=== PATIENT | female | born 1970 | race Caucasian/White ===

== ENCOUNTER → 2023-03-04 | Outpatient (CLI) | payer OTHER ==
[2023-03-04 12:51] LABS: Appearance,Urine Cloudy (Clear); Bilirubin,Urine Negative (Negative); Blood,Urine Negative (Negative); Color,Urine Yellow (Yellow); Ketones,Urine Negative (Negative); Nitrite,Urine Negative (Negative); PH, Urine 6.5 (5.0-8.0); Specific Gravity,Urine 1.018 (1.001-1.030); Urobilinogen,Urine 0.2 (0.2,1.0)
[2023-03-04 13:43] LABS: Bacteria,Urine 1+ /HPF (None Seen); Calcium Oxalate Crystals,Urine Present /LPF (None Seen)
[2023-03-04 14:17] LABS: Basophils # (A) 0.06 X 10*3/uL (0.00-0.10); Basophils % (A) 1.4 %; Eosinophils # (A) 0.42 X 10*3/uL (0.04-0.35); Eosinophils % (A) 9.8 %; HCT 46.9 % (37.2-46.3); HGB 14.4 g/dL (12.0-15.0); Immature Grans, Automated 0.5 %; Lymphocytes # (A) 1.47 X 10*3/uL (0.90-5.00); Lymphocytes % (A) 34.3 %; MCH 26.3 pg (27.0-32.0); MCHC 30.7 g/dL (32.0-37.0); MCV 85.6 fL (80.0-97.0); Monocytes # (A) 0.29 X 10*3/uL (0.20-1.00); Monocytes % (A) 6.8 %; NRBC Per 100 WBC 0 /100 WBCS (0.0-0.0); Neutrophils # (A) 2.02 X 10*3/uL (1.80-7.70); Neutrophils % (A) 47.2 %; Platelet Count 209 X 10*3/uL (140-440); RBC 5.48 X 10*6/uL (4.10-5.20); RDW 14.9 % (11.5-14.5); WBC 4.28 X 10*3/uL (4.50-10.00)
[2023-03-04 14:46] LABS: African American GFR (CKD) 63.1 (60.0-200.0); Anion Gap 10.9 mmol/L (10.00-18.00); BUN/Creat Ratio 14.3 Ratio (12.00-20.00); Blood Urea Nitrogen 16.3 mg/dL (9.0-27.0); Carbon Dioxide 24.3 mmol/L (20.0-27.5); Non-African American GFR(CKD) 54.5 (60.0-200.0); Potassium 4.6 mmol/L (3.5-5.5)
== END | disposition home or self-care (01) ==
LOC: LABPAT 07:14
PROVIDERS: ATTEND Urology
DX: Z01.812 Encounter for preprocedural laboratory examination (principal); N20.1 Calculus of ureter; R31.29 Other microscopic hematuria
CPT/HCPCS: 80048; 81001; 85025; 87086

== ENCOUNTER 2023-03-12 08:51 | Day surgery (SDC) | payer OTHER ==
--- NOTE | 2023-03-11 19:28 | P.GSHP ---
History of Present Illness H&P Date: 03/11/23 52 yo female came from [place] with bilateral ureteral stones. On the right there are two large stones in the mid ureter with chronic hydro and significant damage to the kidney. there is also a possible tiny stone in the left distal ureter. She comes for right ureteroscopy, laser lithotripsy, stent placement. I will also do a left retrograde pyelogram and possible ureteroscopy if the small distal left ureteral stone is still present. the risks and complications have been discussed. - Constitutional Constitutional: Denies chills, Denies fever - EENT Eyes: denies blurred vision, denies pain Ears, nose, mouth and throat: Denies headache, Denies sore throat - Cardiovascular Cardiovascular: Denies chest pain, Denies shortness of breath - Respiratory Respiratory: Denies cough, Denies 7 - Gastrointestinal Gastrointestinal: Denies abdominal pain, Denies diarrhea, Denies nausea, Denies vomiting - Genitourinary (Female) Genitourinary: Denies dysuria, Denies hematuria - Genitourinary (Male) Genitourinary: Denies dysuria, Denies hematuria - Musculoskeletal Musculoskeletal: Denies myalgias - Integumentary Integumentary: Denies pruritus, Denies rash - Neurological Neurological: Denies numbness, Denies weakness - Psychiatric Psychiatric: Denies anxiety, Denies depression - Endocrine Endocrine: Denies fatigue, Denies weight change Past Medical History Past Medical History: Renal Disease Additional Past Medical History / Comment(s): KIDNEY STONES, ENVIRONMENTAL ALLERGIES. History of Any Multi-Drug Resistant Organisms: None Reported Past Surgical History: Section, Tubal Ligation Additional Past Surgical History / Comment(s): KIDNEY STONES Additional Past Anesthesia/Blood Transfusion Reaction / Comment(s): Pt has never received blood. Smoking Status: Never smoker - Past Family History Mother Additional Family Medical History / Comment(s): BACK PROBLEMS Father Family Medical History: Cancer Additional Family Medical History / Comment(s): FROM COLON CANCER, KIDNEY STONES. Medications and Allergies Home Medications Medication Instructions Recorded Confirmed Type Hydrocodone/Acetaminophen [[place] 1 each PO Q6HR PRN #20 tab 11/14/14 03/10/23 Rx 5-325] Ketorolac [Toradol] 10 mg PO Q6HR #20 tab 01/26/15 05/22/23 Rx Tamsulosin HCl [Flomax] 0.4 mg PO QAM 03/10/23 03/10/23 History Allergies Allergy/AdvReac Type Severity Reaction Status Date / Time No Known Allergies Allergy Verified 03/10/23 10:26 Surgical - Exam - General well developed, well nourished, no distress - Eyes normal ocular movement, no icteric - ENT no hearing loss, no congestion - Neck no masses, trachea midline - Respiratory normal respiratory effort, clear to auscultation - Abdomen Abdomen: soft, non tender, no guarding, no rigid, no rebound - Integumentary no rash, no abnormal pigmentation - Neurologic no disoriented, no combative - Psychiatric oriented to time, oriented to person, oriented to place, speech is normal, me yakelin intact Results - Imaging CT scan - abdomen: report reviewed, image reviewed CT scan - pelvis: report reviewed, image reviewed Assessment and Plan Assessment: Impression: right uretera stones with chronic hydro and secondary damage to the kidney. probable left ureteral stone Plan: right ureteroscopy with laser lithotripsy, stent placement. Left retrograde pyelogram and possible ureteroscopy with laser lithotrispy
[~2023-03-12 08:51] MED LIST: ceFAZolin 3 GM in SODIUM CHLORIDE 0.9% 100 ML IVPB PRN
--- NOTE | 2023-03-12 09:13 | XR ---
EXAMINATION TYPE: XR KUB DATE OF EXAM: 03/12/2023 9:03 AM INDICATION: Patient age:Female; 52 years old; Reason for study: N20.1 RT URETAL STONE; COMPARISON: 11/14/2014 TECHNIQUE: One radiographic view of the abdomen was obtained. FINDINGS: The bowel gas pattern is nonspecific without dilated loops of small or large bowel. There i s no evidence for organomegaly or pneumoperitoneum. The osseous structures are intact opacification projecting over the kidney measuring 11 mm. There is a right calculus near the distal right ureter me asuring 7 mm. Fecal material and gas are demonstrated throughout the colon and rectum. IMPRESSION: 1. Left renal stone projecting over the inferior renal pole measuring 11 mm. 2. Right pelvic calculus near the expected location of the distal right ureter measuring 7 mm.
[2023-03-12 09:19] VITALS: RESP 16
[2023-03-12] MEDS ORDERED: ONDANSETRON 4 MG/2 ML VIAL ONE (09:28)
[2023-03-12] MEDS ORDERED: LACTATED RINGERS 1,000 ML IV ONE ×2 (09:32→10:29)
[2023-03-12] MEDS ORDERED: DEXAMETHASONE SOD PHOSPHATE 4 MG/ML 1 ML VIAL IVP ONE (09:33)
[2023-03-12] MEDS ORDERED: ONDANSETRON 4 MG/2 ML VIAL IVP ONE (09:33)
[2023-03-12] MEDS ORDERED: PROPOFOL 10 MG/ML 20 ML VIAL IV ONE (09:39)
[2023-03-12] MEDS ORDERED: ePHEDrine 50 MG/ML 1 ML VIAL ONE (09:39)
[2023-03-12] MEDS ORDERED: LIDOCAINE 2% INJ 20 MG/ML (2 ML VIAL) ONE (09:39)
[2023-03-12] MEDS ORDERED: SUCCINYLCHOLINE CHLORIDE 200 MG/10 ML VIAL IV ONE (09:39)
[2023-03-12] MEDS ORDERED: WATER FOR INJECTION, STERILE 10 ML VIAL IV ONE (09:39)
[2023-03-12] MEDS ORDERED: fentaNYL (PF) 50 MCG/ML 2 ML AMP ONE (09:39)
[2023-03-12] MEDS ORDERED: GLYCOPYRROLATE 0.2 MG/ML 2 ML VIAL ONE (09:39)
[2023-03-12] MEDS ORDERED: MIDAZOLAM 2 MG/2 ML VIAL ONE (09:39)
[2023-03-12] MEDS ORDERED: IOPAMIDOL-370 100ML BTL MISCELLANE ONE (10:06)
[2023-03-12 11:43] VITALS: TEMP 96.8
--- NOTE | 2023-03-12 11:44 | P.OP ---
Date of Procedure: 03/12/23 Preoperative Diagnosis: Right ureteral calculi, large, with significant chronic hydronephrosis, possible left ureteral calculus, left renal calculus Postoperative Diagnosis: Same, no evidence of ureteral calculus left Procedure(s) Performed: Cystoscopy, bilateral retrograde pyelograms, right ureteroscopy with laser lithotripsy, placement of 6 x 24 stent Anesthesia: BRANDI Surgeon: Michael Vilchis Estimated Blood Loss (ml): 10 Pathology: other (Stone) Condition: stable Disposition: PACU Indications for Procedure: The patient is 52. She presented to the office with large distal right ureteral stones greater than 1 cm with obvious chronic right hydroureteronephrosis with damage to her right kidney. She also had a small left ureteral calculus and a small left renal calculus. Due to her obesity it is difficult to say for certain whether the left ureteral stone was seen on KUB today. The right ureteral stone is seen faintly. She comes for cystoscopy bilateral retrograde pyelograms probable right ureteroscopy laser lithotripsy and stent placement possible left ureteroscopy. Description of Procedure: The patient is brought to the operating suite. She is given a general anesthetic. She's placed lithotomy position with sterile prep and drape. She has a notable cystocele with a posterior place floor the bladder. Cystoscopy identifies a normal urethra. The bladder ocampo unremarkable. With a cone-tip catheters a right retrograde pyelogram was performed identifying stones in the distal and midureter large with almost complete obstruction. I then do a left retrograde pyelogram with an 8 cone-tip catheter and do not identify any eviden ce of obstruction or filling defect in the ureter. I then attempted to pass an 035 wire up the right ureter but meet some obstruction of the stone. I leave the wire there. I then advanced a rigid u reteroscope up to the right stone. With a 3 and 65 laser probe I then began to slowly fracture the stone with 8 W of energy. I tediously break up almost 2 cm of stone. About longterm through the procedure and finally able to advance the wire up into the kidney. I continue to break the stone until I'm able to pass the scope proximal to the stone. The stone was embedded into the ureteral wall and there are significant edema around the stone. After breaking everything I can see into smaller fragments I then pass a stone basket and scrape out fragments out of the right ureter.. I thus reinspected the ureter and there is no significant fragments remaining. There is a lot of edema or more the stone had lodged a. I then removed the ureteroscope. I drained the bladder and stone fragments. Over the wires passed a 6 x 24 double-J catheter that coils in the renal pelvis and the bladder there is drained. The patient is awake and returned recovery room good condition Impression successful right ureteroscopy laser lithotripsy and relief of significant obstruction on the right. No Evidence of stone in the ureter on the left. Plan I will discharged home the patient upon recovery and see her in the office in one week. I'll set her up for a repeat ureteroscopy on the right to assess the edema and scarring created by the stone. I'll see if there is any segments remaining. I then we'll do a left ureteroscopy laser lithotripsy to the lower pole stone.
[2023-03-12] MEDS ORDERED: hydrALAZINE HCL 20 MG/ML 1 ML VIAL ONE (12:49)
[2023-03-12] MEDS ORDERED: hydrALAZINE HCL 20 MG/ML 1 ML VIAL IVP ONE (12:52)
[2023-03-12 13:11] VITALS: BP 147/96; PULSE 82
--- NOTE | 2023-03-12 14:47 | FL ---
Intraoperative/procedural fluoroscopic services were provided. Total fluoroscopy time is 26 seconds w ith a total of 3 submitted images to PACS. Please see the operative/procedural note for further detlina ls. DAP: 7.6050
== END 2023-03-12 13:22 | disposition home or self-care (01) ==
LOC: OR 08:51
PROVIDERS: ATTEND Urology
DX: N13.2 Hydronephrosis with renal and ureteral calculous obstruction (principal); Z98.891 History of uterine scar from previous surgery; Z98.51 Tubal ligation status; Z98.890 Other specified postprocedural states; Z80.0 Family history of malignant neoplasm of digestive organs; Z79.899 Other long term (current) drug therapy
CPT/HCPCS: 82365; 74018; 52356; C1758; C1769; J2250; J0330; J0360; J1100; J0690; J2405; J3010; J2704; Q9967; J2001

== ENCOUNTER → 2023-05-07 | Outpatient (CLI) | payer OTHER ==
--- NOTE | 2023-05-07 08:42 | XR ---
EXAMINATION TYPE: XR KUB DATE OF EXAM: 05/07/2023 COMPARISON: 03/12/2023 HISTORY: Renal calculus TECHNIQUE: AP abdomen FINDINGS: There is a 0.6 cm calcification inferior pole right kidney. A 0.6 cm calcifications at the inferior pole left kidney. This is smaller than the comparison. The calcification reported at the mid right pelvis not clearly evident on the current exam. Normal colonic bowel gas is present. Osseous structures are unremarkable. Organomegaly is not evident . Psoas margins are normal. IMPRESSION: 1. Bilateral 0.6 cm inferior pole renal stones. Right renal stone is smaller than comparison. 2. Nonvisualization of the prior pelvic stone.
== END | disposition home or self-care (01) ==
LOC: RADXRMAIN 07:27
PROVIDERS: ATTEND Urology
DX: N20.2 Calculus of kidney with calculus of ureter (principal)
CPT/HCPCS: 74018

== ENCOUNTER 2023-08-16 02:05 | Observation (INO) | payer OTHER ==
[2023-08-16] MEDS ORDERED: HYDROmorphone 1 MG/ML 1 ML SYRINGE IVP STA ×2 (02:39→04:04)
[2023-08-16] MEDS ORDERED: SODIUM CHLORIDE 0.9% 2,000 ML IV STA (02:39)
--- NOTE | 2023-08-16 03:12 | ED ---
Abdominal Pain HPI - General Source: patient Mode of arrival: ambulatory Limitations: no limitations <Rob Diez - Last Filed: 08/16/23 03:20> <Santino Geiger - Last Filed: 08/16/23 06:25> - General Chief Complaint: Abdominal Pain Stated Complaint: Kidney Stones, Nausea, Vomiting Time Seen by Provider: 08/16/23 02:21 - History of Present Illness Initial Comments: 53-year-old female presents to the ED with a chief complaint of flank pain. Patient has extensive history of kidney stones. Patient recently seen by Dr. Vilchis on 03/12/23 and had lithotripsy of right obstructing stone measuring 1cm. At this time no evidence of obstructing stone on the left. No stents were placed following this. Today, patient reports that she started to experience inability to urinate at approximately 8:30. Since then, also notes a gradual progression of bilateral flank pain. Reports that she tried taking Toradol and [place] at home which did not reveal a her pain probably presentation to the ED for further evaluation. Associated nausea, no vomiting. No chest pain or shortness of breath. No other complaints. (Rob Diez) - Related Data Home Medications Medication Instructions Recorded Confirmed Tamsulosin HCl [Flomax] 0.4 mg PO QAM 03/10/23 03/10/23 Previous Rx's Medication Instructions Recorded Hydrocodone/Acetaminophen [[place] 1 each PO Q6HR PRN #20 tab 11/14/14 5-325] Ketorolac [Toradol] 10 mg PO Q6HR #20 tab 11/14/14 Allergies Allergy/AdvReac Type Severity Reaction Status Date / Time Sulfa (Sulfonamide Allergy Nausea & Verified 08/16/23 02:18 Antibiotics) Vomiting Review of Systems ROS Other: All systems not noted in ROS Statement are negative. <Rob Diez - Last Filed: 08/16/23 03:20> ROS Other: All systems not noted in ROS Statement are negative. <Santino Geiger - Last Filed: 08/16/23 06:25> ROS Statement: Those systems with pertinent positive or pertinent negative responses have been documented in the HPI. Past Medical History Additional Past Medical History / Comment(s): KIDNEY STONES History of Any Multi-Drug Resistant Organisms: None Reported Past Surgical History: Section Additional Past Surgical History / Comment(s): KIDNEY STONES Past Psychological History: No Psychological Hx Reported Smoking Status: Never smoker Past Alcohol Use History: None Reported Past Drug Use History: None Reported <CharyRob - Last Filed: 08/16/23 03:20> General Exam Limitations: no limitations General appearance: alert, in distress (Pacing the room, appears to be in pain unable to get comfortable) Neck exam: Present: normal inspection Respiratory exam: Present: normal lung sounds bilaterally Cardiovascular Exam: Present: regular rate, normal rhythm GI/Abdominal exam: Present: soft (Bilateral flank tenderness to percussion. Abdomen soft. Diffuse tenderness to palpation. ), normal bowel sounds Neurological exam: Present: alert, oriented X3 Skin exam: Present: warm, dry <Rob Diez - Last Filed: 08/16/23 03:20> Course Vital Signs 08/16/23 08/16/23 02:15 06:19 Temperature 98 F Pulse Rate 88 91 Respiratory 18 20 Rate Blood Pressure 120/86 O2 Sat by Pulse 98 94 L Oximetry Medical Decision Making <Rob Diez - Last Filed: 08/16/23 03:20> - Lab Data Result diagrams: 08/16/23 02:26 08/16/23 02:26 <Santino Geiger - Last Filed: 08/16/23 06:25> - Medical Decision Making Was pt. sent in by a medical professional or institution (Dr. PA, REGISTERED ASSOCIATE, urgent care, hospital, or assisted...) When possible be specific @ -No Did you speak to anyone other than the patient for history (EMS, parent, family, police, friend...)? What history was obtained from this source @ -No Did you review nursing and triage notes (agree or disagree)? Why? @ -I reviewed and agree with nursing and triage notes Were old charts reviewed (outside hosp., previous admission, EMS record, old EKG, old radiological studies, urgent care reports/EKG's, assisted records)? Report findings @ -Prior records reviewed. For further details please see HPI. Differential Diagnosis (chest pain, altered mental status, abdominal pain women, abdominal pain men, vaginal bleeding, weakness, fever, dyspnea, syncope, headache, dizziness, GI bleed, back pain, seizure, CVA, palpatations, mental health, musculoskeletal)? @ -Differential Abdominal Pain Women: Appendicitis, Cholecystitis, diverticulosis, ischemic bowel, pancreatitis, hepatitis, UTI, gastroenteritis, AAA, incarcerated hernia, bowel obstruction, constipation, inflammatory bowel, hepatitis, peptic ulcer disease, splenic infarction, perforated viscus, vulvitis, ovarian torsion, PID, kidney stone, placenta abruption, this is not meant to be an all-inclusive list EKG interpreted by me (3pts min.). @ -None X-rays interpreted by me (1pt min.). @ -None CT interpreted by me (1pt min.). @ -Pending U/S interpreted by me (1pt. min.). @ -None done What testing was considered but not performed or refused? (CT, X-rays, U/S, labs)? Why? @ -None What meds were considered but not given or refused? Why? @ -None Did you discuss the management of the patient with other professionals (professionals i.e. , PA, REGISTERED ASSOCIATE, lab, RT, psych nurse, elementary school social worker, chart snatcher, teacher, division officer weapons department, case fitter)? Give summary @ -No Was smoking cessation discussed for >3mins.? @ -No Was critical care preformed (if so, how long)? @ -No Were there social determinants of health that impacted care today? How? (Homelessness, low income, unemployed, alcoholism, drug addiction, transportation, low edu. Level, literacy, decrease access to med. care, assisted, rehab)? @ -No Was there de-escalation of care discussed even if they declined (Discuss DNR or withdrawal of care, Hospice)? DNR status @ -No What co-morbidities impacted this encounter? (DM, HTN, Smoking, COPD, CAD, Cancer, CVA, ARF, Chemo, Hep., AIDS, mental health diagnosis, sleep apnea, morbid obesity)? @ -None Was patient admitted / discharged? Hospital course, mention meds given and route, prescriptions, significant lab abnormalities, going to OR and other pertinent info. @ -Pending 83-year-old female with history of kidney stones presented to the ED with complaints of dysuria, urgency, bilateral flank pain, and nausea. At this time, laboratory studies and CT abdomen and pelvis without contrast are pending. Case signed out to Dr. Geiger for further disposition. (Rob Diez) Patient has multiple obstructing calculi in the right ureter with hydronephrosis, hydroureter, there is concern for concurrent urine or tract infection. Patient is started on antibiotics awaiting culture results. She'll be admitted to Dr. Florez for evaluation treatment. (Santino Geiger) - Lab Data Lab Results 08/16/23 08/16/23 08/16/23 Range/Units 02:26 02:26 02:26 WBC 9.4 (3.8-10.6) k/uL RBC 5.65 H (3.80-5.40) m/uL Hgb 15.4 (11.4-16.0) gm/dL Hct 49.0 H (34.0-46.0) % MCV 86.7 (80.0-100.0) fL MCH 27.2 (25.0-35.0) pg MCHC 31.4 (31.0-37.0) g/dL RDW 15.7 H (11.5-15.5) % Plt Count 238 (150-450) k/uL MPV 7.8 Neutrophils % 79 % Lymphocytes % 13 % Monocytes % 3 % Eosinophils % 3 % Basophils % 0 % Neutrophils # 7.5 (1.3-7.7) k/uL Lymphocytes # 1.2 (1.0-4.8) k/uL Monocytes # 0.3 (0-1.0) k/uL Eosinophils # 0.3 (0-0.7) k/uL Basophils # 0.0 (0-0.2) k/uL Sodium 141 (137-145) mmol/L Potassium 4.3 (3.5-5.1) mmol/L Chloride 109 H (98-107) mmol/L Carbon Dioxide 23 (22-30) mmol/L Anion Gap 9 mmol/L BUN 15 (7-17) mg/dL Creatinine 1.20 H (0.52-1.04) mg/dL Est GFR (CKD-EPI)AfAm 59 (>60 ml/min/1.73 sqM) Est GFR (CKD-EPI)NonAf 51 (>60 ml/min/1.73 sqM) Glucose 109 H (74-99) mg/dL Calcium 11.2 H (8.4-10.2) mg/dL Total Bilirubin 0.5 (0.2-1.3) mg/dL AST 20 (14-36) U/L ALT 20 (4-34) U/L Alkaline Phosphatase 90 (38-126) U/L Total Protein 7.1 (6.3-8.2) g/dL Albumin 4.1 (3.5-5.0) g/dL Urine Color Yellow Urine Appearance Turbid H (Clear) Urine pH 7.0 (5.0-8.0) Ur Specific [place] 1.025 (1.001-1.035) Urine Protein 3+ (Negative) Urine Glucose (UA) Negative (Negative) Urine Ketones Negative (Negative) Urine Blood Large (Negative) Urine Nitrite Negative (Negative) Urine Bilirubin Negative (Negative) Urine Urobilinogen <2.0 (<2.0) mg/dL Ur Leukocyte Esterase Large (Negative) Urine RBC >182 H (0-5) /hpf Urine WBC >182 H (0-5) /hpf Urine WBC Clumps Many H (None) /hpf Ur Squamous Epith Cells 4 (0-4) /hpf Urine Bacteria Moderate H (None) /hpf Urine Mucus Many H (None) /hpf Disposition <Rob Diez - Last Filed: 08/16/23 03:20> Is patient prescribed a controlled substance at d/c from ED?: No Time of Disposition: 06:25 <Santino Geiger - Last Filed: 08/16/23 06:25> Clinical Impression: Ureteral calculus, UTI (urinary tract infection), Kidney stone Disposition: ADMITTED IP TO THIS HOSP Condition: Stable Referrals: Marco Antonio Wolf MD [Primary Care Provider] - 1-2 days
[2023-08-16 03:30] LABS: Basophils % (A) 0 %; Eosinophils # (A) 0.3 k/uL (0-0.7); Eosinophils % (A) 3 %; HGB 15.4 gm/dL (11.4-16.0); Lymphocytes # (A) 1.2 k/uL (1.0-4.8); Lymphocytes % (A) 13 %; MCH 27.2 pg (25.0-35.0); MCHC 31.4 g/dL (31.0-37.0); MCV 86.7 fL (80.0-100.0); Mean Platelet Volume 7.8; Monocytes # (A) 0.3 k/uL (0-1.0); Monocytes % (A) 3 %; Neutrophils # (A) 7.5 k/uL (1.3-7.7); Neutrophils % (A) 79 %; Platelet Count 238 k/uL (150-450); RBC 5.65 m/uL (3.80-5.40); RDW 15.7 % (11.5-15.5); WBC 9.4 k/uL (3.8-10.6)
[2023-08-16 03:36] LABS: Appearance,Urine Turbid (Clear); Bilirubin,Urine Negative (Negative); Blood,Urine Large (Negative); Color,Urine Yellow; Glucose,Urine (UA) Negative (Negative); Ketones,Urine Negative (Negative); Protein,Urine 3+ (Negative); Specific Gravity,Urine 1.025 (1.001-1.035); Urobilinogen,Urine <2.0 mg/dL (<2.0)
[2023-08-16 03:37] LABS: Leukocyte Esterase,Urine Large (Negative); Nitrite,Urine Negative (Negative)
[2023-08-16 03:47] LABS: Bacteria,Urine Moderate /hpf; Mucus,Urine Many /hpf; RBC,Urine >182 /hpf (0-5); Squamous Epithelial Cell,Urine 4 /hpf (0-4); WBC,Urine >182 /hpf (0-5)
[2023-08-16 04:01] LABS: ALT 20 U/L (4-34); AST 20 U/L (14-36); African American GFR (CKD) 59 (>60 ml/min/1.73 sqM); Albumin 4.1 g/dL (3.5-5.0); Alkaline Phosphatase 90 U/L (38-126); Anion Gap 9 mmol/L; Blood Urea Nitrogen 15 mg/dL (7-17); Calcium 11.2 mg/dL (8.4-10.2); Carbon Dioxide 23 mmol/L (22-30); Chloride 109 mmol/L (98-107); Glucose 109 mg/dL (74-99); Non-African American GFR(CKD) 51 (>60 ml/min/1.73 sqM); Sodium 141 mmol/L (137-145); Total Bilirubin 0.5 mg/dL (0.2-1.3); Total Protein 7.1 g/dL (6.3-8.2)
[2023-08-16] MEDS ORDERED: KETOROLAC 15 MG/ML 1 ML VIAL IVP STA (04:04)
[2023-08-16 04:49] LABS: Potassium 4.3 mmol/L (3.5-5.1)
--- NOTE | 2023-08-16 05:09 | CT ---
EXAM: CT Abdomen and Pelvis Without Intravenous Contrast CLINICAL HISTORY: r/o stone TECHNIQUE: Axial computed tomography images of the abdomen and pelvis without intravenous contrast. CTDI is 27.4 mGy and DLP is 1664 mGy-cm. This CT exam was performed using one or more of the following dose reduction techniques: automated exposure control, adjustment of the mA and/or kV according to patient size, and/or use of iterative reconstruction technique. COMPARISON: CT of the abdomen/pelvis dated 11/14/2014. FINDINGS: Lung bases: Patchy ground-glass and consolidative opacities are seen in the left lower lobe suggesting infectious versus inflammatory airspace disease. ABDOMEN: Liver: Unremarkable. Gallbladder and bile ducts: Unremarkable. No calcified stones. No ductal dilation. Pancreas: Unremarkable. No ductal dilation. Spleen: Splenomegaly, measuring up to 14.7 cm in greatest dimension, as seen on prior study and of unknown significance. Adrenals: Unremarkable. No mass. Kidneys and ureters: Three subcentimeter stones are seen in the right ureter, 2 of which are seen in the mid right ureter, measuring up to 7 mm, with a 3-4 mm stone seen at the right UVJ resulting in moderate/severe right-sided hydroureteronephrosis with associated perinephric and periureteral fat stranding. A few nonobstructing stones are seen in the right kidney, largest of which measures 6 mm in the lower pole. Nonobstructive left nephrolithiasis, measuring up to 9 mm in the lower pole. Stomach and bowel: Unremarkable. No obstruction. No mucosal thickening. PELVIS: Appendix: No findings to suggest acute appendicitis. Bladder: Underdistention and/or wall thickening of the urinary bladder, which may represent cystitis. No stones. Reproductive: Fibroid uterus again noted, unchanged. ABDOMEN and PELVIS: Intraperitoneal space: Unremarkable. No free air. No significant fluid collection. Bones/joints: No acute fracture. No dislocation. Soft tissues: Small/moderate fat-containing supraumbilical hernia. Vasculature: Unremarkable. No abdominal aortic aneurysm. Lymph nodes: Mildly prominent retroperitoneal lymph nodes, likely reactive. IMPRESSION: 1. Three subcentimeter stones are seen in the right ureter, 2 of which are seen in the mid right ureter, measuring up to 7 mm, with a 3-4 mm stone seen at the right UVJ resulting in moderate/severe right-sided hydroureteronephrosis with associated perinephric and periureteral fat stranding. Correlate clinically for superimposed infection. 2. Underdistention and/or wall thickening of the urinary bladder, which may represent cystitis. Correlate clinically. 3. Patchy ground-glass and consolidative opacities are seen in the left lower lobe suggesting infectious versus inflammatory airspace disease. 4. Splenomegaly, as seen on prior study and of unknown significance.
[2023-08-16] MEDS: SODIUM CHLORIDE 0.9% 1,000 ML IV SCH ×2 (05:25→19:17)
[2023-08-16] MEDS ORDERED: HYDROmorphone 0.5 MG/0.5 ML SYRINGE IVP PRN (06:23)
[2023-08-16] MEDS ORDERED: NALOXONE 0.4 MG/ML 1 ML VIAL IV PRN (06:23)
[2023-08-16] MEDS ORDERED: ONDANSETRON 4 MG/2 ML VIAL IVP PRN (06:23)
[2023-08-16] MEDS ORDERED: ACETAMINOPHEN TAB 325 MG TAB PO PRN (06:23)
[2023-08-16] MEDS: HYDROmorphone 1 MG/ML 1 ML SYRINGE IVP PRN ×2 (09:57→15:18)
--- NOTE | 2023-08-16 14:31 | P.GSHP ---
History of Present Illness H&P Date: 08/16/23 Chief Complaint: Right renal colic The patient is a 53-year-old white female with a history of recurrent urolithiasis secondary to hyperparathyroidism. Yesterday evening, she experienced acute onset of right flank pain associated with nausea and vomiting. She presented to the ER for evaluation. CT scan shows significant right hydronephrosis secondary to 3 right ureteral calculi. Urinalysis is suggestive of a UTI. - Constitutional Constitutional: Denies chills, Denies fever - Gastrointestinal Gastrointestinal: Reports nausea, Reports vomiting - Genitourinary (Female) Genitourinary: Reports dysuria, Reports flank pain, Reports hematuria, Reports k idney stones Past Medical History Additional Past Medical History / Comment(s): KIDNEY STONES History of Any Multi-Drug Resistant Organisms: None Reported Past Surgical History: Section Additional Past Surgical History / Comment(s): KIDNEY STONES Past Psychological History: No Psychological Hx Reported Smoking Status: Never smoker Past Alcohol Use History: None Reported Past Drug Use History: None Reported Medications and Allergies Home Medications Medication Instructions Recorded Confirmed Type No Known Home Medications 08/16/23 08/16/23 History Allergies Allergy/AdvReac Type Severity Reaction Status Date / Time nitrofurantoin Allergy nausea, Verified 08/16/23 11:38 [From Macrobid] vomiting, pounding headache, unable to move Sulfa (Sulfonamide Allergy Nausea & Verified 08/16/23 11:38 Antibiotics) Vomiting Surgical - Exam Vital Signs Temp Pulse Resp Pulse Ox 98 F 88 18 98 08/16/23 02:15 08/16/23 02:15 08/16/23 02:15 08/16/23 02:15 - General well developed, well nourished, moderate pain - Respiratory normal respiratory effort - Abdomen Soft, non-distended. Moderate right CVA tenderness. No left CVA tenderness. - Psychiatric oriented to time, oriented to person, oriented to place, speech is normal, memory intact Results - Labs 08/16/23 02:26 08/16/23 02:26 Abnormal Lab Results - Last 24 Hours (Table) 08/16/23 08/16/23 08/16/23 Range/Units 02:26 02:26 02:26 RBC 5.65 H (3.80-5.40) m/uL Hct 49.0 H (34.0-46.0) % RDW 15.7 H (11.5-15.5) % Chloride 109 H (98-107) mmol/L Creatinine 1.20 H (0.52-1.04) mg/dL Glucose 109 H (74-99) mg/dL Calcium 11.2 H (8.4-10.2) mg/dL Urine Appearance Turbid H (Clear) Urine RBC >182 H (0-5) /hpf Urine WBC >182 H (0-5) /hpf Urine WBC Clumps Many H (None) /hpf Urine Bacteria Moderate H (None) /hpf Urine Mucus Many H (None) /hpf Diabetes panel 08/16/23 Range/Units 02:26 Sodium 141 (137-145) mmol/L Potassium 4.3 (3.5-5.1) mmol/L Chloride 109 H (98-107) mmol/L Carbon Dioxide 23 (22-30) mmol/L BUN 15 (7-17) mg/dL Creatinine 1.20 H (0.52-1.04) mg/dL Glucose 109 H (74-99) mg/dL Calcium 11.2 H (8.4-10.2) mg/dL AST 20 (14-36) U/L ALT 20 (4-34) U/L Alkaline Phosphatase 90 (38-126) U/L Total Protein 7.1 (6.3-8.2) g/dL Albumin 4.1 (3.5-5.0) g/dL Calcium panel 08/16/23 Range/Units 02:26 Calcium 11.2 H (8.4-10.2) mg/dL Albumin 4.1 (3.5-5.0) g/dL Pituitary panel 08/16/23 Range/Units 02:26 Sodium 141 (137-145) mmol/L Potassium 4.3 (3.5-5.1) mmol/L Chloride 109 H (98-107) mmol/L Carbon Dioxide 23 (22-30) mmol/L BUN 15 (7-17) mg/dL Creatinine 1.20 H (0.52-1.04) mg/dL Glucose 109 H (74-99) mg/dL Calcium 11.2 H (8.4-10.2) mg/dL Adrenal panel 08/16/23 Range/Units 02:26 Sodium 141 (137-145) mmol/L Potassium 4.3 (3.5-5.1) mmol/L Chloride 109 H (98-107) mmol/L Carbon Dioxide 23 (22-30) mmol/L BUN 15 (7-17) mg/dL Creatinine 1.20 H (0.52-1.04) mg/dL Glucose 109 H (74-99) mg/dL Calcium 11.2 H (8.4-10.2) mg/dL Total Bilirubin 0.5 (0.2-1.3) mg/dL AST 20 (14-36) U/L ALT 20 (4-34) U/L Alkaline Phosphatase 90 (38-126) U/L Total Protein 7.1 (6.3-8.2) g/dL Albumin 4.1 (3.5-5.0) g/dL - Imaging CT scan - abdomen: report reviewed, image reviewed Assessment and Plan (1) Ureteral calculus Current Visit: Yes Status: Acute Code(s): N20.1 - CALCULUS OF URETER SNO MED Code(s): 96366794 (2) UTI (urinary tract infection) Current Visit: Yes Status: Acute Code(s): N39.0 - URINARY TRACT INFECTION, SITE NOT SPECIFIED SNOMED Code(s): 44672311 (3) Hydronephrosis with renal and ureteral calculous obstruction Current Visit: Yes Status: Acute Code(s): N13.2 - HYDRONEPHROSIS WITH RENAL AND URETERAL CALCULOUS OBSTRUCTION SNOMED Code(s): 788913771 Plan: Patient is admitted for IV hydration, parenteral analgesics, and parenteral antiemetics. She is receiving IV antibiotics, pending the urine culture result. She will undergo cystoscopy with right ureteral stent insertion tomorrow. The rationale for this was reviewed in detail with the patient, who is aware of potential risks which include anesthesia, ureteral injury, and inability to successfully place a stent. Time with Patient: Greater than 30
[2023-08-16] MEDS: KETOROLAC 15 MG/ML 1 ML VIAL IVP PRN (19:57)
[2023-08-17] MEDS: KETOROLAC 15 MG/ML 1 ML VIAL IVP PRN ×3 (00:52→23:47)
[2023-08-17] MEDS ORDERED: fentaNYL (PF) 50 MCG/ML 2 ML AMP ONE (09:02)
[2023-08-17] MEDS ORDERED: MIDAZOLAM 2 MG/2 ML VIAL ONE (09:02)
[2023-08-17] MEDS ORDERED: SUCCINYLCHOLINE CHLORIDE 200 MG/10 ML VIAL IV ONE (09:02)
[2023-08-17] MEDS ORDERED: LIDOCAINE 1% INJ 10MG/ML (20 ML MDV) ONE (09:02)
[2023-08-17] MEDS ORDERED: PROPOFOL 10 MG/ML 20 ML VIAL IV ONE (09:02)
[2023-08-17] MEDS ORDERED: LACTATED RINGERS 1,000 ML IV ONE (09:10)
[2023-08-17] MEDS ORDERED: IOPAMIDOL-370 50ML BTL MISCELLANE ONE ×2 (09:30)
--- NOTE | 2023-08-17 10:05 | P.OP ---
Date of Procedure: 08/17/23 Preoperative Diagnosis: Right hydronephrosis secondary to right ureteral calculi Postoperative Diagnosis: Same Procedure(s) Performed: Cystoscopy, right ureteral stent insertion, left retrograde pyelogram Anesthesia: DELBERTA Surgeon: Clem Florez Estimated Blood Loss (ml): 0 IV fluids (ml): 300 Pathology: none sent Condition: stable Disposition: PACU Indications for Procedure: The patient is a 53-year-old white female with a history of recurrent urolithi asis secondary to hyperparathyroidism. Yesterday evening, she experienced acute onset of right flank pain associated with nausea and vomiting. She presented to the ER for evaluation. CT scan shows significant right hydronephrosis secondary to 3 right ureteral calculi. Urinalysis is suggestive of a UTI, and she is thus receiving antibiotics. She now comes for placement of a right ureteral stent. She has experienced some discomfort on the left side, so a retrograde pyelogram will be performed to rule out left ureteral obstruction. Operative Findings: No evidence of left ureteral obstruction. Successful right ureteral stent insertion. Description of Procedure: The patient was taken to the operating room and placed in the dorsolithotomy position, with legs supported in Saulo stirrups. The external genitalia was prepped and draped sterilely. The 30 lens was used to introduce the 22-[place] Stortz cystoscopic sheath through the urethra and into the bladder under direct vision. The bladder was examined in its entirety. Both ureteral orifices were of normal anatomic location and configuration, and clear urine effluxed from both. No tumors or foreign bodies were seen. A 0.035 inch Glidewire was passed through the cystoscope. The right ureteral orifice was cannulated, and the Glidewire was slowly advanced up to the renal pelvis. A 24 cm, 6-[place] double- J ureteral stent was placed over the wire. Proper stent positioning was verified fluoroscopically and endoscopically. There was no significant drainage of urine through the stent, as might be expected with hydronephrosis. Using a 10-[place] cone-tipped catheter, a left retrograde pyelogram was performed. The course of the ureter appeared normal, with no calculi or filling defects seen. There was no evidence of hydronephrosis, and the system drained promptly. The beak of the cystoscope was placed immediately adjacent to the distal end of the right ureteral stent. Urine was collected and sent for culture and sensitivity. The bladder was emptied and the cystoscope removed. The patient tolerated the procedure well was taken to the recovery room in stable condition.
[2023-08-17] MEDS ORDERED: droPERidol 5 MG/2 ML VIAL IVP ONE (10:41)
[2023-08-17] MEDS ORDERED: DEXAMETHASONE SOD PHOSPHATE 4 MG/ML 1 ML VIAL IV ONE (10:41)
[2023-08-17] MEDS ORDERED: LIDOCAINE 1% (10MG/ML) FOR IV START INTRADERMA PRN (10:41)
[2023-08-17] MEDS: SODIUM CHLORIDE 0.9% 1,000 ML IV SCH ×2 (11:07→23:25)
[2023-08-17] MEDS: LACTATED RINGERS 1,000 ML IV SCH (11:09)
--- NOTE | 2023-08-17 15:20 | FL ---
EXAMINATION TYPE: FL guidance operating room DATE OF EXAM: 08/17/2023 9:44 AM CLINICAL INDICATION:Female, 53 years old with history of Cysto with RT stent insert; [facility] COMPARISON: None TECHNIQUE: FL guidance operating room. Multiple fluoroscopic spot views submitted from cystoscopy and retrograde pyelography. FINDINGS: Fluoroscopic spot views were obtained intraoperatively and saved to PACS. Please refer to operative note for full details. IMPRESSION: Documentation of fluoroscopy.
[2023-08-17] MEDS ORDERED: diphenhydrAMINE 50 MG CAP PO PRN (19:32)
[2023-08-17] MEDS ORDERED: LEVOFLOXACIN 500MG-D5W PMX 500 MG in DEXTROSE/WATER 1 100ML.BAG IVPB SCH (20:00)
[2023-08-17 22:58] VITALS: RESP 16
[2023-08-18] MEDS ORDERED: HYDROmorphone 0.5 MG/0.5 ML SYRINGE IVP PRN (07:00)
[2023-08-18] MEDS ORDERED: ONDANSETRON 4 MG/2 ML VIAL IVP PRN (07:00)
[2023-08-18 08:22] VITALS: BP 150/95; PULSE 86; TEMP 99
[2023-08-18] MEDS: SODIUM CHLORIDE 0.9% 1,000 ML IV SCH (12:12)
[2023-08-18] MEDS: LACTATED RINGERS 1,000 ML IV SCH (12:13)
--- NOTE | 2023-08-19 10:00 | P.DS ---
Providers Date of admission: 08/16/23 06:23 Attending physician: Clem Florez Primary care physician: Marco Antonio Wolf [facility] Course: This is a 53-year-old female admitted to the hospital secondary to a right ureteral stone and UTI. She underwent right-sided stent insertion by Dr. Florez on August 17. Patient did well post operatively. She was discharged home on postop day #1, her urine culture did grow E. coli. She was discharged home on Ceftin, advised to follow up with Dr. Lubin in 1 week to be set up for a right- sided ureteroscopy Patient Condition at Discharge: Stable Plan - Discharge Summary Discharge Rx Participant: Yes New Discharge Prescriptions: New cefUROXime axetiL [Cefuroxime] 500 mg PO BID #14 tab Ketorolac [Toradol] 10 mg PO Q6HR PRN #15 tab PRN Reason: Pain Discharge Medication List Ketorolac [Toradol] 10 mg PO Q6HR PRN #15 tab 08/18/23 [Rx] cefUROXime axetiL [Cefuroxime] 500 mg PO BID #14 tab 08/18/23 [Rx] Follow up Appointment(s)/Referral(s): Marco Antonio Wolf MD [Primary Care Provider] - 1-2 days Michael Vilchis MD [STAFF PHYSICIAN] - 08/21/23 10:40 am Patient Instructions/Handouts: Urinary Tract Infection in Women (DC), Cystoscopy (DC) Discharge Disposition: HOME SELF-CARE
== END 2023-08-18 14:18 | disposition home or self-care (01) ==
LOC: EC 02:05 → 6NMEDSUR 06:23
PROVIDERS: ADMIT Urology; ATTEND Urology
DX: N13.2 Hydronephrosis with renal and ureteral calculous obstruction (principal); N39.0 Urinary tract infection, site not specified; Z87.442 Personal history of urinary calculi; Z79.899 Other long term (current) drug therapy; Z88.2 Allergy status to sulfonamides
CPT/HCPCS: 96376 ×3; 96361 ×3; 96366; 96367; 96375 ×2; 96365; 99285; 36415; 80053; 85025; 81001; 87086 ×2; 87075; 87077; 87186; 74176; 52332; G0378 ×3; C2625; C1758; C1769; J2405; J1956; J0696; J1170 ×2; J1885 ×2; Q9967

== ENCOUNTER → 2023-09-03 | Outpatient (CLI) | payer OTHER ==
[2023-09-03 16:17] LABS: Basophils # (A) 0.05 X 10*3/uL (0.00-0.10); Basophils % (A) 0.9 %; Eosinophils # (A) 0.22 X 10*3/uL (0.04-0.35); Eosinophils % (A) 4.1 %; HCT 46.7 % (37.2-46.3); HGB 14.3 g/dL (12.0-15.0); Lymphocytes # (A) 1.72 X 10*3/uL (0.90-5.00); Lymphocytes % (A) 31.7 %; MCH 26.6 pg (27.0-32.0); MCHC 30.6 g/dL (32.0-37.0); Mean Platelet Volume 9.5 FL (9.5-12.2); Monocytes # (A) 0.55 X 10*3/uL (0.20-1.00); Monocytes % (A) 10.1 %; NRBC Per 100 WBC 0 X 10*3/uL (0.00-0.01); Neutrophils # (A) 2.84 X 10*3/uL (1.80-7.70); Neutrophils % (A) 52.3 %; Platelet Count 271 X 10*3/uL (140-440); RBC 5.37 X 10*6/uL (4.10-5.20); RDW 17.1 % (11.5-14.5); WBC 5.43 X 10*3/uL (4.50-10.00)
[2023-09-03 16:25] LABS: Blood Urea Nitrogen 13.1 mg/dL (9.0-27.0); Calcium 10.9 mg/dL (8.7-10.3); Carbon Dioxide 27.8 mmol/L (21.6-31.8); Chloride 105 mmol/L (96-109); Glucose 85 mg/dL (70-110); Potassium 4.4 mmol/L (3.5-5.5); Sodium 143 mmol/L (135-145)
[2023-09-03 17:18] LABS: Appearance,Urine Cloudy (Clear); Bilirubin,Urine Negative (Negative); Blood,Urine Large (Negative); Color,Urine Yellow (Yellow); Ketones,Urine Negative (Negative); Nitrite,Urine Negative (Negative); PH, Urine 7.5; Specific Gravity,Urine 1.011 (1.001-1.030); Urobilinogen,Urine 0.2 E.U./DL
[2023-09-03 17:30] LABS: Bacteria,Urine 1+ (None Seen)
== END | disposition home or self-care (01) ==
LOC: LABPAT 07:52
PROVIDERS: ATTEND Urology
DX: Z01.812 Encounter for preprocedural laboratory examination (principal); N20.1 Calculus of ureter; R31.29 Other microscopic hematuria
CPT/HCPCS: 80048; 81001; 85025; 87086

== ENCOUNTER 2023-09-10 09:39 | Day surgery (SDC) | payer OTHER ==
[2023-09-05 11:48] VITALS: BMI 48.4
--- NOTE | 2023-09-08 20:18 | P.GSHP ---
History of Present Illness H&P Date: 09/08/23 53 yo female who recently was in the hospital for colic due to 3 mid to distal right ureteral stones. She had a stent placed by Dr Florez. She now comes for formal stone and stent removal. - Constitutional Constitutional: Denies chills, Denies fever - EENT Eyes: denies blurred vision, denies pain Ears, nose, mouth and throat: Denies headache, Denies sore throat - Cardiovascular Cardiovascular: Denies chest pain, Denies shortness of breath - Respiratory Respiratory: Denies cough, Denies 7 - Gastrointestinal Gastrointestinal: Denies abdominal pain, Denies diarrhea, Denies nausea, Denies vomiting - Genitourinary (Female) Genitourinary: Denies dysuria, Denies hematuria - Genitourinary (Male) Genitourinary: Denies dysuria, Denies hematuria - Musculoskeletal Musculoskeletal: Denies myalgias - Integumentary Integumentary: Denies pruritus, Denies rash - Neurological Neurological: Denies numbness, Denies weakness - Psychiatric Psychiatric: Denies anxiety, Denies depression - Endocrine Endocrine: Denies fatigue, Denies weight change Past Medical History Additional Past Medical History / Comment(s): KIDNEY STONES. History of Any Multi-Drug Resistant Organisms: None Reported Past Surgical History: Section Additional Past Surgical History / Comment(s): KIDNEY STONES. Past Anesthesia/Blood Transfusion Reactions: No Reported Reaction Past Psychological History: No Psychological Hx Reported Smoking Status: Never smoker Past Alcohol Use History: None Reported Past Drug Use History: None Reported - Past Family History Father Family Medical History: Cancer Additional Family Medical History / Comment(s): Colon cancer. Medications and Allergies Home Medications Medication Instructions Recorded Confirmed Type Cetirizine HCl [Zyrtec] 10 mg PO DAILY 09/05/23 09/05/23 History Allergies Allergy/AdvReac Type Severity Reaction Status Date / Time nitrofurantoin Allergy nausea, Verified 09/05/23 11:25 [From Macrobid] vomiting, pounding headache, unable to move Sulfa (Sulfonamide Allergy Nausea & Verified 09/05/23 11:25 Antibiotics) Vomiting Surgical - Exam - General well developed, well nourished, no distress - Eyes normal ocular movement, no icteric - ENT no hearing loss, no congestion - Neck no masses, trachea midline - Respiratory normal respiratory effort, clear to auscultation - Abdomen Abdomen: soft, non tender, no guarding, no rigid, no rebound - Integumentary no rash, no abnormal pigmentation - Neurologic no disoriented, no combative - Psychiatric oriented to time, oriented to person, oriented to place, speech is normal, memory intact Results - Imaging CT scan - abdomen: report reviewed, image reviewed CT scan - pelvis: report reviewed, image reviewed Assessment and Plan Assessment: Impression: right ureteral stone with stent Plan: cysto with right ureteroscopy with laser lithotripsy, stent removal
[~2023-09-10 09:39] MED LIST changes: +AMPICILLIN 1,000 MG in SODIUM CHLORIDE 0.9% 50 ML IVPB PRN; +DEXAMETHASONE SOD PHOSPHATE 4 MG/ML 1 ML VIAL IV ONE; +GENTAMICIN 140 MG in SODIUM CHLORIDE 0.9% 100 ML IVPB PRN; +HYDROmorphone 0.5 MG/0.5 ML SYRINGE IVP PRN; +LACTATED RINGERS 1,000 ML IV SCH; +LIDOCAINE 1% (10MG/ML) FOR IV START INTRADERMA PRN; +MIDAZOLAM 2 MG/2 ML VIAL IV PRN; +ONDANSETRON 4 MG/2 ML VIAL IVP ONE; -ceFAZolin 3 GM in SODIUM CHLORIDE 0.9% 100 ML IVPB PRN
--- NOTE | 2023-09-10 10:30 | XR ---
EXAMINATION TYPE: XR KUB DATE OF EXAM: 09/10/2023 Comparison: 05/07/2023 Clinical History: 53-year-old female [id number] PRE SURGICAL Findings: A right ureteral stent is now demonstrated. The proximal loop is probably in the renal pelvis. 9 mm a nd adjacent 6 mm stone are noted right kidney. 9 mm stone left kidney. Nonobstructive bowel gas patte rn. Impression: Bilateral nephrolithiasis as above. Right ureteral stent in place. The proximal loop appears slightly low probably low within the renal pelvis.
[2023-09-10] MEDS ORDERED: MIDAZOLAM 2 MG/2 ML VIAL ONE (12:57)
[2023-09-10] MEDS ORDERED: SUCCINYLCHOLINE CHLORIDE 200 MG/10 ML VIAL IV ONE (12:57)
[2023-09-10] MEDS ORDERED: PROPOFOL 10 MG/ML 20 ML VIAL IV ONE (12:57)
[2023-09-10] MEDS ORDERED: KETOROLAC 30 MG/ML 1 ML VIAL ONE (12:57)
[2023-09-10] MEDS ORDERED: fentaNYL (PF) 50 MCG/ML 2 ML AMP ONE (12:57)
[2023-09-10] MEDS ORDERED: ROCURONIUM 10 MG/ML (5 ML VIAL) IV ONE (12:57)
[2023-09-10] MEDS ORDERED: LIDOCAINE 1% INJ 10MG/ML (20 ML MDV) ONE (12:57)
[2023-09-10] MEDS ORDERED: IOPAMIDOL-370 100ML BTL MISCELLANE ONE (13:18)
--- NOTE | 2023-09-10 13:50 | P.OP ---
Date of Procedure: 09/10/23 Preoperative Diagnosis: Right renal stone, right ureteral stone Postoperative Diagnosis: Same Procedure(s) Performed: Cystoscopy, right ureteroscopy with laser lithotripsy to right renal and right ureteral stone. Stone basketing. Removal double-J catheter right Anesthesia: DELBERTA Surgeon: Michael Vilchis Estimated Blood Loss (ml): 0 Pathology: other Condition: stable Disposition: PACU Indications for Procedure: Patient is 53. She had an obstructing ureteral stone on the right with infection. The infection and treated she now comes for stone removal as well as a right renal stone removal Description of Procedure: Patient brought operating suite. Given general anesthetic. Cystoscopy Foroblique lens identifies catheter edema and right double-J catheter. It is grasped and pulled the urethral meatus. An 035 wires passed up the ureter into the right renal pelvis. Over the wires passed a 10-45-Afxent reentry sheath in the right kidney. Sheath removed. I passed the flexible ureteroscope up to the right renal stone. His broken into tiny pieces the largest of which are basketed. I then do a pullout ureteroscopy and identify 6-7 mm proximal ureteral stone. It is broken into smaller fragments and also basketed. Then of the procedure I re-look in the kidney as well as in the proximal ureter and there are no remaining stone. Pullout ureteroscopy is unremarkable.
[2023-09-10 14:16] VITALS: TEMP 97.1
[2023-09-10] MEDS ORDERED: LACTATED RINGERS 1,000 ML IV ONE (14:52)
--- NOTE | 2023-09-10 15:11 | FL ---
EXAMINATION TYPE: FL guidance operating room DATE OF EXAM: 09/10/2023 Comparison: None Clinical History: 53-year-old female CYSTOSCOPY RT URETERAL STONE Findings: Cysto for right side kidney stone 17sec fluoro time 0.[address] Vilchis 2 images are provided Impression: Fluoroscopy for urology procedure as above.
[2023-09-10 15:14] VITALS: BP 138/81; PULSE 74; RESP 18
== END 2023-09-10 15:37 | disposition home or self-care (01) ==
LOC: OR 09:39
PROVIDERS: ATTEND Urology
DX: N20.2 Calculus of kidney with calculus of ureter (principal); Z98.891 History of uterine scar from previous surgery; Z80.0 Family history of malignant neoplasm of digestive organs; Z88.1 Allergy status to other antibiotic agents; Z88.2 Allergy status to sulfonamides
CPT/HCPCS: 82365; 74018; 52353; C1769; C1894; J2250; J0330; J1100; J2405; J2001; J3010; J1885; J1580; J0290; J2704; Q9967

== ENCOUNTER 2023-12-29 08:16 | Observation (INO) | payer OTHER ==
--- NOTE | 2023-12-29 08:55 | ED ---
Abdominal Pain HPI - General Chief Complaint: Abdominal Pain Stated Complaint: Possible kidney stone Time Seen by Provider: 12/29/23 08:22 Source: patient, RN notes reviewed Mode of arrival: ambulatory Limitations: no limitations - History of Present Illness Initial Comments: This is a 53 year old female who presents to the emergency department for right flank pain. States that this started about a week ago, but seems to be getting worse. She has a hx of kidney stones, most recently in August of last year, when she had to have them removed. States that the pain feels the same, but seems to be getting worse. Pain wraps around into the lower abdomen. Reports associated nausea. Denies any urinary symptoms or fever/chills. - Related Data Home Medications Medication Instructions Recorded Confirmed Ergocalciferol (Vitamin D2) 1,250 mcg PO MO 12/29/23 12/29/23 [Drisdol (50,000 Iu)] Allergies Allergy/AdvReac Type Severity Reaction Status Date / Time nitrofurantoin Allergy nausea, Verified 12/29/23 11:52 [From Macrobid] vomiting, pounding headache, unable to move Sulfa (Sulfonamide Allergy Nausea & Verified 12/29/23 11:53 Antibiotics) Vomiting, RASH/hives Review of Systems ROS Statement: Those systems with pertinent positive or pertinent negative responses have been documented in the HPI. ROS Other: All systems not noted in ROS Statement are negative. Past Medical History Additional Past Medical History / Comment(s): KIDNEY STONES History of Any Multi-Drug Resistant Organisms: None Reported Past Surgical History: Section Additional Past Surgical History / Comment(s): KIDNEY STONES Past Psychological History: No Psychological Hx Reported Smoking Status: Never smoker Past Alcohol Use History: None Reported Past Drug Use History: None Reported - Past Family History Father Family Medical History: Cancer Additional Family Medical History / Comment(s): kidney stones, of colon cancer Mother Additional Family Medical History / Comment(s): joint replacements Brother(s) Family Medical History: Hypertension, Myocardial Infarction (ND), Renal Disease Additional Family Medical History / Comment(s): kidney stones General Exam Limitations: no limitations General appearance: alert, in no apparent distress Head exam: Present: atraumatic, normocephalic, normal inspection Respiratory exam: Present: normal lung sounds bilaterally. Absent: respiratory distress, wheezes, rales, rhonchi, stridor Cardiovascular Exam: Present: regular rate, normal rhythm, normal heart sounds. Absent: systolic murmur, diastolic murmur, rubs, gallop, clicks GI/Abdominal exam: Present: soft, tenderness (RLQ), normal bowel sounds. Absent: distended Back exam: Present: CVA tenderness (R). Absent: CVA tenderness (L) Neurological exam: Present: alert, oriented X3, CN II-XII intact Psychiatric exam: Present: normal affect, normal mood Skin exam: Present: warm, dry, intact, normal color. Absent: rash Course Vital Signs 12/29/23 12/29/23 12/29/23 08:18 10:24 12:07 Temperature 97.7 F 98.0 F Pulse Rate 75 65 61 Respiratory 18 18 18 Rate Blood Pressure 169/117 161/117 O2 Sat by Pulse 97 98 96 Oximetry 12/29/23 14:14 Temperature 98.1 F Pulse Rate 74 Respiratory 18 Rate Blood Pressure 147/88 O2 Sat by Pulse 97 Oximetry Medical Decision Making - Medical Decision Making This is a 53 year old female who presents to the emergency department for flank pain. Was pt. sent in by a medical professional or institution? @ -No Did you speak to anyone other than the patient for history? @ -No Did you review nursing and triage notes? @ -Yes, and I agree, it is accurate with regards to the patient's symptoms. Were old charts reviewed? @ -No Differential Diagnosis? @ -Differential Flank Pain: UTI, pyelonephritis, kidney stone, musculoskeletal, pancreatitis, cholecystitis, this is not meant to be an all-inclusive list. EKG interpreted by me (3pts min.)? @ -Not obtained X-rays interpreted by me (1pt min.)? @ -Not obtained CT interpreted by me (1pt min.)? @ -CT scan of the abdomen and pelvis obtained. My interpretation identifies right-sided hydronephrosis. U/S interpreted by me (1pt. min.)? @ -Not obtained What testing was considered but not performed? (CT, X-rays, U/S, labs)? Why? @ -None What meds were considered but not given? Why? @ -None Did you discuss the management of the patient with other professionals? @ -Yes, Dr. Florez, who requests a urine culture. Dr. Renteria accepts the patient for admission to medicine. Did you reconcile home meds? @ -Yes Was smoking cessation discussed for >3mins.? @ -No Was critical care preformed (if so, how long)? @ -No Were there social determinants of health that impacted care today? How? ( Homelessness, low income, unemployed, alcoholism, drug addiction, transportation, low edu. Level, literacy, decrease access to med. care, custodial, rehab)? @ -No Was there de-escalation of care discussed even if they declined? (Discuss DNR or withdrawal of care, Hospice)? @ -No What co-morbidities impacted this encounter? (DM, HTN, Smoking, COPD, CAD, Cancer, CVA, Hep., AIDS, mental health diagnosis, sleep apnea, morbid obesity)? @ -Kidney stones Was patient admitted / discharged? @ -Admitted. Lab work demonstrates an elevated calcium of 11.0 and a mild elevation in creatinine. Urinalysis reveals blood as well as elevated WBCs and large leukocyte esterase. Urine sent for culture. Given the elevated WBCs, patient given 2g Ceftriaxone. CT scan of the abdomen pelvis demonstrates severe right-sided hydronephrosis and right-sided hydroureter. Ureter dilated up to nearly 2 cm. She has 3 obstructive calculi, measuring 5 mm, 4 mm, and 2 mm. Given the severity of the hydronephrosis with multiple obstructing calculi, patient admitted to medicine for further management with urology listed as consult. Undiagnosed new problem with uncertain prognosis? @ -None Drug Therapy requiring intensive monitoring for toxicity (Heparin, Nitro, Insulin, Cardizem)? @ -None Were any procedures done? @ -None Diagnosis/symptom? @ -Ureteral calculus, hydronephrosis Acute, or Chronic, or Acute on Chronic? @ -Acute Uncomplicated (without systemic symptoms) or Complicated (systemic symptoms)? @ -Complicated Side effects of treatment? @ -None Exacerbation, Progression, or Severe Exacerbation] @ -Not applicable Poses a threat to life or bodily function? @ -Yes This case was discussed in detail with the attending ED physician, Dr. Matthews. Presentation, findings, and treatment plan discussed in detail as well. - Lab Data Result diagrams: 12/29/23 08:52 12/29/23 08:52 Lab Results 12/29/23 12/29/23 12/29/23 Range/Units 08:52 08:52 08:52 WBC 4.6 (3.8-10.6) k/uL RBC 5.61 H (3.80-5.40) m/uL Hgb 15.3 (11.4-16.0) gm/dL Hct 48.4 H (34.0-46.0) % MCV 86.4 (80.0-100.0) fL MCH 27.3 (25.0-35.0) pg MCHC 31.6 (31.0-37.0) g/dL RDW 14.6 (11.5-15.5) % Plt Count 168 (150-450) k/uL MPV 6.8 Neutrophils % 61 % Lymphocytes % 21 % Monocytes % 7 % Eosinophils % 7 % Basophils % 1 % Neutrophils # 2.8 (1.3-7.7) k/uL Lymphocytes # 1.0 (1.0-4.8) k/uL Monocytes # 0.3 (0-1.0) k/uL Eosinophils # 0.3 (0-0.7) k/uL Basophils # 0.0 (0-0.2) k/uL Sodium 139 (137-145) mmol/L Potassium 4.6 (3.5-5.1) mmol/L Chloride 107 (98-107) mmol/L Carbon Dioxide 25 (22-30) mmol/L Anion Gap 7 mmol/L BUN 15 (7-17) mg/dL Creatinine 1.12 H (0.52-1.04) mg/dL Est GFR (CKD-EPI)AfAm 64 (>60 ml/min/1.73 sqM) Est GFR (CKD-EPI)NonAf 55 (>60 ml/min/1.73 sqM) Glucose 101 H (74-99) mg/dL Calcium 11.0 H (8.4-10.2) mg/dL Total Bilirubin 0.6 (0.2-1.3) mg/dL AST 23 (14-36) U/L ALT 12 (4-34) U/L Alkaline Phosphatase 93 (38-126) U/L Total Protein 7.2 (6.3-8.2) g/dL Albumin 4.1 (3.5-5.0) g/dL Amylase 60 (30-110) U/L Lipase 108 (23-300) U/L Urine Color Light Yellow Urine Appearance Cloudy H (Clear) Urine pH 6.5 (5.0-8.0) Ur Specific [place] 1.015 (1.001-1.035) Urine Protein Trace H (Negative) Urine Glucose (UA) Negative (Negative) Urine Ketones Negative (Negative) Urine Blood Small H (Negative) Urine Nitrite Negative (Negative) Urine Bilirubin Negative (Negative) Urine Urobilinogen <2.0 (<2.0) mg/dL Ur Leukocyte Esterase Large H (Negative) Urine RBC 11 H (0-5) /hpf Urine WBC 61 H (0-5) /hpf Ur Squamous Epith Cells 5 H (0-4) /hpf Urine Mucus Occasional H (None) /hpf - Radiology Data Radiology results: report reviewed, image reviewed Disposition Clinical Impression: Hydronephrosis of right kidney, Ureteral calculus, right Disposition: ADMITTED IP TO THIS [facility] Time of Disposition: 11:32
[2023-12-29] MEDS: KETOROLAC 15 MG/ML 1 ML VIAL IVP STA ×2 (08:59→10:26)
[2023-12-29] MEDS: SODIUM CHLORIDE 0.9% 1,000 ML IV STA (08:59)
[2023-12-29] MEDS: MORPHINE SULFATE 4 MG/ML SYRINGE IVP STA ×2 (09:17→11:33)
[2023-12-29 09:24] LABS: Basophils % (A) 1 %; Eosinophils # (A) 0.3 k/uL (0-0.7); Eosinophils % (A) 7 %; HCT 48.4 % (34.0-46.0); HGB 15.3 gm/dL (11.4-16.0); Lymphocytes % (A) 21 %; MCH 27.3 pg (25.0-35.0); MCHC 31.6 g/dL (31.0-37.0); MCV 86.4 fL (80.0-100.0); Mean Platelet Volume 6.8; Monocytes # (A) 0.3 k/uL (0-1.0); Monocytes % (A) 7 %; Neutrophils # (A) 2.8 k/uL (1.3-7.7); Neutrophils % (A) 61 %; Platelet Count 168 k/uL (150-450); RBC 5.61 m/uL (3.80-5.40); RDW 14.6 % (11.5-15.5); WBC 4.6 k/uL (3.8-10.6)
[2023-12-29 09:46] LABS: Appearance,Urine Cloudy (Clear); Bilirubin,Urine Negative (Negative); Blood,Urine Small (Negative); Color,Urine Light Yellow; Glucose,Urine (UA) Negative (Negative); Ketones,Urine Negative (Negative); Leukocyte Esterase,Urine Large (Negative); Mucus,Urine Occasional /hpf; Nitrite,Urine Negative (Negative); PH, Urine 6.5 (5.0-8.0); Protein,Urine Trace (Negative); RBC,Urine 11 /hpf (0-5); Specific Gravity,Urine 1.015 (1.001-1.035); Squamous Epithelial Cell,Urine 5 /hpf (0-4); Urobilinogen,Urine <2.0 mg/dL (<2.0); WBC,Urine 61 /hpf (0-5)
[2023-12-29 09:49] LABS: ALT 12 U/L (4-34); AST 23 U/L (14-36); African American GFR (CKD) 64 (>60 ml/min/1.73 sqM); Albumin 4.1 g/dL (3.5-5.0); Alkaline Phosphatase 93 U/L (38-126); Amylase 60 U/L (30-110); Anion Gap 7 mmol/L; Blood Urea Nitrogen 15 mg/dL (7-17); Carbon Dioxide 25 mmol/L (22-30); Chloride 107 mmol/L (98-107); Glucose 101 mg/dL (74-99); Lipase 108 U/L (23-300); Non-African American GFR(CKD) 55 (>60 ml/min/1.73 sqM); Potassium 4.6 mmol/L (3.5-5.1); Sodium 139 mmol/L (137-145); Total Bilirubin 0.6 mg/dL (0.2-1.3); Total Protein 7.2 g/dL (6.3-8.2)
--- NOTE | 2023-12-29 10:43 | CT ---
EXAMINATION TYPE: CT abdomen pelvis wo con DATE OF EXAM: 12/29/2023 COMPARISON: 08/16/2023 HISTORY: 53-year-old female Right flank pain CT DLP: 1710 mGycm. Automated exposure control for dose reduction was used. TECHNIQUE: Contiguous axial scanning of the abdomen and pelvis without IV contrast. Coronal and sagit danielito reconstructions performed. FINDINGS: LUNG BASES: No significant abnormality is appreciated. LIVER/GB: No significant abnormality is appreciated. PANCREAS: No significant abnormality is seen. SPLEEN: Enlarged at 15.7 cm versus 14.7 cm, previously. ADRENALS: No significant abnormality is seen. KIDNEYS: Severe right-sided hydronephrosis and severe right-sided hydroureter, dilated up to 1.8 cm. Numerous nonobstructive right renal stones are present measuring up to 5 mm. There are 2 adjacent obs tructive stones in the distal third right ureter measuring 5 mm and 4 mm. An additional punctate 2 mm stone at the mid right ureter. Numerous nonobstructive left renal calculi are present, largest measuring 1.0 cm. LYMPH NODES: No significant abnormality is seen. BOWEL: No dilated small bowel. No free fluid or free air. Normal appendix. Scattered mild stool. Min imal diverticular change mid sigmoid colon. No pericolonic inflammatory change.r OTHER: Small fatty umbilical hernia measuring 4.3 cm wide. There may be some trace fluid in this area . Correlate for any pain. PELVIS: Bladder is collapsed. Uterus anteverted with a left fundal fibroid measuring 3.5 cm and a 1.1 cm anterior body subserosal fibroid. Both ovaries are visualized. No abnormal fluid collection in th e pelvis. BONES: Mild degenerative change of both hips. Facet arthropathy moderate in L5-S1. Moderate degenerat sujata disc disease T12-L1 and mild within the lower thoracic spine. IMPRESSION: 1. Severe right-sided hydronephrosis and right-sided hydroureter. Ureter dilated up to nearly 2 cm. A couple adjacent obstructive stones at the distal third right ureter measure 5 mm and 4 mm. An addit ional punctate 2 mm stone at the mid right ureter. 2. Bilateral nephrolithiasis measuring up to 1.0 cm. 3. Splenomegaly at 15.7 cm versus 14.7 cm, previously. Clinically correlate. 4. Small fatty and medical hernia measuring 4.3 cm wide. Relatively unchanged in size but now contai juana some trace fluid. Correlate for any focal pain here.
[2023-12-29] MEDS ORDERED: NALOXONE 0.4 MG/ML 1 ML VIAL IV PRN (11:34)
[2023-12-29] MEDS ORDERED: IBUPROFEN 400 MG TAB PO PRN (11:34)
[2023-12-29] MEDS ORDERED: ACETAMINOPHEN TAB 325 MG TAB PO PRN (11:34)
[2023-12-29] MEDS: SODIUM CHLORIDE 0.9% 1,000 ML IV SCH (12:11)
[2023-12-29] MEDS: cefTRIAXone IN SWFI 1,000 MG/10 ML SYRINGE IVP STA (12:12)
[2023-12-29] MEDS: MORPHINE SULFATE 4 MG/ML SYRINGE IV PRN (14:18)
[2023-12-29] MEDS: KETOROLAC 15 MG/ML 1 ML VIAL IVP PRN (18:09)
[2023-12-29] MEDS: ERGOCALCIFEROL 1,250 MCG (50,000 IU) CAPSULE PO SCH (19:16)
[2023-12-29] MEDS ORDERED: LACTULOSE 20 GM/30 ML CUP PO PRN (20:36)
[2023-12-29] MEDS ORDERED: MELATONIN 3 MG TABLET PO PRN (20:36)
[2023-12-29] MEDS ORDERED: CALCIUM CARBONATE 500 MG CHEWABLE PO PRN (20:36)
[2023-12-29] MEDS ORDERED: LORazepam 0.5 MG TAB PO PRN (20:36)
--- NOTE | 2023-12-29 20:39 | P.HPIM ---
History of Present Illness H&P Date: 12/29/23 Chief Complaint: Right flank pain This is a pleasant 53-year-old patient, follows with Dr. Brain Wolf. Patient has a long history of kidney stones. Used to previously follow-up with Dr. Bradshaw more than with dr. grubbs. Patient had previous stones removed. Has bilateral nephrolithiasis. Currently is also following with manager of financial reporting Dr. Monge. Has elevated calcium levels and elevated parathyroid hormone. Workup is in place for possible hyper parathyroidism. For 2 weeks patient felt some discomfort coming on. And right-sided flank pain increased. No fever no chills been having nausea. Symptoms became much worse and decided to come in. Currently no urinary symptoms. Review of systems: GEN.: Tired EYES: None HEENT: None NECK: None RESPIRATORY: None CARDIOVASCULAR: None GASTROINTESTINAL: Nausea e GENITOURINARY: None MUSCULOSKELETAL: None LYMPHATICS: None HEMATOLOGICAL: None PSYCHIATRY: None NEUROLOGICAL: None Social history: Lives alone. Her mother lives with her. Works at [employer] and down. No smoking no alcohol. Physical examination: VITAL SIGNS: 97.7, 75, 18, 127 x 86, 97% room air GENERAL: BMI 47.9, reclining in bed awake not in distress. EYES: Pupils equal. Conjunctiva luis l. HEENT: External appearance of nose and ears normal, oral cavity grossly normal. NECK: JVD not raised; masses not palpable. HEART: First and second heart sounds are normal; no edema. LUNGS: Respiratory rate normal; clear to auscultation. ABDOMEN: Soft, right renal angle tenderness r, liver spleen not palpable, no masses palpable. PSYCH: Alert and oriented x3; mood and affect luis l. MUSCULOSKELETAL:No Clubbing/cyanosis;muscles-grossly intact NEUROLOGICAL: Cranial nerves grossly intact; no facial asymmetry, power and sensation grossly intact. LYMPHATICS: No lymph nodes palpable in the axilla and neck INVESTIGATIONS, reviewed in the clinical context: December 28: White count 4.6 hemoglobin 15.3 platelets 168 potassium 4.6 BUN 15 creatinine 1.12 calcium 11 UA: Blood small. Nitrate negative. Leukoesterase large. WBC 61. CT abdomen pelvis without contrast: Severe right-sided hydronephrosis severe right-sided hydroureter. Up to 1.8 cm. Numerous nonobstructing right renal stones are present. 2 stones in the distal right third ureter 5 mm and 4 mm. Numerous nonobstructive left renal calculi present. Assessment and plan: -Acute severe right-sided hydronephrosis severe right-sided hydroureter. Up to 1.8 cm. Numerous nonobstructing right renal stones are present. 2 stones in the distal right third ureter 5 mm and 4 mm. Patient's had at least 2 more prior episodes with intervention. Urology consulted for probable extraction IV fluids. Flomax. -Bilateral renal calculi of varying sizes -Hypercalcemia. Outpatient workup is being done by Dr. Monge from endocrinology. Patient has elevated PTH. Concern is for primary hyper parathyroidism -Morbid obesity BMI 47.9 Weight loss measures Patient will be n.p.o. after midnight for intervention. IV fluids. Flomax. Subcu Lovenox. Care was discussed with the patient. Questions answered. Past Medical History Additional Past Medical History / Comment(s): KIDNEY STONES History of Any Multi-Drug Resistant Organisms: None Reported Past Surgical History: Section Additional Past Surgical History / Comment(s): multiple lithotripsies and stents for kidney stones Past Anesthesia/Blood Transfusion Reactions: No Reported Reaction Smoking Status: Never smoker - Past Family History Father Family Medical History: Cancer Additional Family Medical History / Comment(s): kidney stones, of colon cancer Mother Additional Family Medical History / Comment(s): joint replacements Brother(s) Family Medical History: Hypertension, Myocardial Infarction ([place]), Renal Disease Additional Family Medical History / Comment(s): kidney stones Medications and Allergies Home Medications Medication Instructions Recorded Confirmed Type Ergocalciferol (Vitamin D2) 1,250 mcg PO MO 12/29/23 12/29/23 History [Drisdol (50,000 Iu)] Allergies Allergy/AdvReac Type Severity Reaction Status Date / Time nitrofurantoin Allergy nausea, Verified 12/29/23 11:52 [From Macrobid] vomiting, pounding headache, unable to move Sulfa (Sulfonamide Allergy Nausea & Verified 12/29/23 11:53 Antibiotics) Vomiting, RASH/hives Physical Exam Vitals: Vital Signs Temp Pulse Pulse Resp BP BP Pulse Ox 12/29/23 15:15 98.3 F 62 18 127/86 12/29/23 14:14 98.1 F 74 18 147/88 97 12/29/23 12:07 98.0 F 61 18 161/117 96 12/29/23 10:24 65 18 98 12/29/23 08:18 97.7 F 75 18 169/117 97 Intake and Output 12/29/23 12/29/23 12/29/23 06:59 14:59 22:59 Intake Total 225 Balance 225 Intake: Intake, IV Titration 225 Amount Sodium Chloride 0.9% 1, 225 000 ml @ 75 mls/hr IV . [id number] [facility] Rx#:[id number] Other: Voiding Method Toilet # Voids 2 Weight 134.717 kg 134.717 kg Results CBC & Chem 7: 12/29/23 08:52 12/29/23 08:52 Labs: Abnormal Lab Results - Last 24 Hours (Table) 12/29/23 12/29/23 12/29/23 Range/Units 08:52 08:52 08:52 RBC 5.61 H (3.80-5.40) m/uL Hct 48.4 H (34.0-46.0) % Creatinine 1.12 H (0.52-1.04) mg/dL Glucose 101 H (74-99) mg/dL Calcium 11.0 H (8.4-10.2) mg/dL Urine Appearance Cloudy H (Clear) Urine Protein Trace H (Negative) Urine Blood Small H (Negative) Ur Leukocyte Esterase Large H (Negative) Urine RBC 11 H (0-5) /hpf Urine WBC 61 H (0-5) /hpf Ur Squamous Epith Cells 5 H (0-4) /hpf Urine Mucus Occasional H (None) /hpf Thrombosis Risk Factor Assmnt - Choose All That Apply Any of the Below Risk Factors Present?: Yes Each Factor Represents 1 point: Age 41-60 years, Obesity (BMI >25) Other Risk Factors: No Other congenital or acquired thrombophilia - If yes, enter type in comment: No Thrombosis Risk Factor Assessment Total Risk Factor Score: 2 Thrombosis Risk Factor Assessment Level: Low Risk
[2023-12-29] MEDS: TAMSULOSIN 0.4 MG CAP.ER.24H PO SCH (20:46)
[2023-12-29] MEDS: ENOXAPARIN 40 MG/0.4 ML SYRINGE SQ SCH (20:47)
--- NOTE | 2023-12-30 06:08 | P.GSCN ---
History of Present Illness Consult date: 12/29/23 Reason for Consult: Right hydronephrosis Requesting physician: Drew Renteria History of present illness: The patient is a 53-year-old white female well-known to our service. She has a history of recurrent urolithiasis secondary to hyperparathyroidism. She was hospitalized in July 2023 with right hydronephrosis. She underwent right ureteral stent insertion. She subsequently underwent cystoscopy, right ureteral stent removal, and ureteroscopic removal of right renal and ureteral calculi. She now presents with a 1 week history of right flank pain associated with nausea. She denies left flank pain. CT scan shows significant right hydronephrosis secondary to 3 right distal ureteral calculi. Urinalysis is suggestive of a UTI. Review of Systems - Constitutional Denies chills, Denies fever - Gastrointestinal Reports nausea - Genitourinary Genitourinary: Reports flank pain, Reports kidney stones, Denies dysuria Past Medical History Additional Past Medical History / Comment(s): KIDNEY STONES History of Any Multi-Drug Resistant Organisms: None Reported Past Surgical History: Section Additional Past Surgical History / Comment(s): multiple lithotripsies and stents for kidney stones Past Anesthesia/Blood Transfusion Reactions: No Reported Reaction Smoking Status: Never smoker - Past Family History Father Family Medical History: Cancer Additional Family Medical History / Comment(s): kidney stones, of colon cancer Mother Additional Family Medical History / Comment(s): joint replacements Brother(s) Family Medical History: Hypertension, Myocardial Infarction ([place]), Renal Disease Additional Family Medical History / Comment(s): kidney stones Medications and Allergies Home Medications Medication Instructions Recorded Confirmed Type Ergocalciferol (Vitamin D2) 1,250 mcg PO MO 12/29/23 12/29/23 History [Drisdol (50,000 Iu)] Allergies Allergy/AdvReac Type Severity Reaction Status Date / Time nitrofurantoin Allergy nausea, Verified 12/29/23 11:52 [From Macrobid] vomiting, pounding headache, unable to move Sulfa (Sulfonamide Allergy Nausea & Verified 12/29/23 11:53 Antibiotics) Vomiting, RASH/hives Surgical - Exam Vital Signs Temp Pulse Resp BP Pulse Ox 97.7 F 75 18 169/117 97 12/29/23 08:18 12/29/23 08:18 12/29/23 08:18 12/29/23 08:18 12/29/23 08:18 - General well developed, well nourished, moderate distress - Respiratory normal respiratory effort - Abdomen Soft, non-distended, no mass. Mild right-sided tenderness, no guarding or rebound. - Psychiatric oriented to time, oriented to person, oriented to place, speech is normal, memory intact Results - Labs 12/29/23 08:52 12/29/23 08:52 Abnormal Lab Results - Last 24 Hours (Table) 12/29/23 12/29/23 12/29/23 Range/Units 08:52 08:52 08:52 RBC 5.61 H (3.80-5.40) m/uL Hct 48.4 H (34.0-46.0) % Creatinine 1.12 H (0.52-1.04) mg/dL Glucose 101 H (74-99) mg/dL Calcium 11.0 H (8.4-10.2) mg/dL Urine Appearance Cloudy H (Clear) Urine Protein Trace H (Negative) Urine Blood Small H (Negative) Ur Leukocyte Esterase Large H (Negative) Urine RBC 11 H (0-5) /hpf Urine WBC 61 H (0-5) /hpf Ur Squamous Epith Cells 5 H (0-4) /hpf Urine Mucus Occasional H (None) /hpf Diabetes panel 12/29/23 Range/Units 08:52 Sodium 139 (137-145) mmol/L Potassium 4.6 (3.5-5.1) mmol/L Chloride 107 (98-107) mmol/L Carbon Dioxide 25 (22-30) mmol/L BUN 15 (7-17) mg/dL Creatinine 1.12 H (0.52-1.04) mg/dL Glucose 101 H (74-99) mg/dL Calcium 11.0 H (8.4-10.2) mg/dL AST 23 (14-36) U/L ALT 12 (4-34) U/L Alkaline Phosphatase 93 (38-126) U/L Total Protein 7.2 (6.3-8.2) g/dL Albumin 4.1 (3.5-5.0) g/dL Calcium panel 12/29/23 Range/Units 08:52 Calcium 11.0 H (8.4-10.2) mg/dL Albumin 4.1 (3.5-5.0) g/dL Pituitary panel 12/29/23 Range/Units 08:52 Sodium 139 (137-145) mmol/L Potassium 4.6 (3.5-5.1) mmol/L Chloride 107 (98-107) mmol/L Carbon Dioxide 25 (22-30) mmol/L BUN 15 (7-17) mg/dL Creatinine 1.12 H (0.52-1.04) mg/dL Glucose 101 H (74-99) mg/dL Calcium 11.0 H (8.4-10.2) mg/dL Adrenal panel 12/29/23 Range/Units 08:52 Sodium 139 (137-145) mmol/L Potassium 4.6 (3.5-5.1) mmol/L Chloride 107 (98-107) mmol/L Carbon Dioxide 25 (22-30) mmol/L BUN 15 (7-17) mg/dL Creatinine 1.12 H (0.52-1.04) mg/dL Glucose 101 H (74-99) mg/dL Calcium 11.0 H (8.4-10.2) mg/dL Total Bilirubin 0.6 (0.2-1.3) mg/dL AST 23 (14-36) U/L ALT 12 (4-34) U/L Alkaline Phosphatase 93 (38-126) U/L Total Protein 7.2 (6.3-8.2) g/dL Albumin 4.1 (3.5-5.0) g/dL - Imaging CT scan - abdomen: report reviewed, image reviewed Assessment and Plan Assessment: The patient has right hydronephrosis which appears to be due to obstructing right distal ureteral calculi. Urinalysis suggests the possibility of infection. (1) Hydronephrosis with renal and ureteral calculous obstruction Current Visit: No Status: Acute Code(s): N13.2 - HYDRONEPHROSIS WITH RENAL AND URETERAL CALCULOUS OBSTRUCTION SNOMED Code(s): 415757186 Plan: Continue ceftriaxone, pending the urine culture result. The patient will undergo cystoscopy, right retrograde pyelogram, right ureteral stent insertion. Arrangements will be made for her to undergo a secondary procedure, once it has been confirmed that she is infection free, consisting of cystoscopy, right ureteral stent removal, right ureteroscopy with laser lithotripsy and possible stone basketing. Time with Patient: Greater than 30
[2023-12-30] MEDS: LACTATED RINGERS 1,000 ML IV ONE (15:56)
[2023-12-30] MEDS: ONDANSETRON 4 MG/2 ML VIAL IVP PRN (16:08)
[2023-12-30] MEDS: fentaNYL (PF) 50 MCG/ML 2 ML AMP IVP ONE ×2 (16:12→16:18)
[2023-12-30] MEDS ORDERED: PROPOFOL 10 MG/ML 20 ML VIAL IV ONE (16:20)
--- NOTE | 2023-12-30 17:13 | P.OP ---
Date of Procedure: 12/30/23 Preoperative Diagnosis: Right hydronephrosis secondary to right ureteral calculi Postoperative Diagnosis: Same Procedure(s) Performed: Cystoscopy, right ureteral stent insertion Anesthesia: MAC Surgeon: Clem Florez Estimated Blood Loss (ml): 0 IV fluids (ml): 200 Pathology: none sent Condition: stable Disposition: PACU Indications for Procedure: The patient is a 53-year-old white female well-known to our service. She has a history of recurrent urolithiasis secondary to hyperparathyroidism. She was hospitalized in July 2023 with right hydronephrosis. She underwent right ureteral stent insertion. She subsequently underwent cystoscopy, right ureteral stent removal, and ureteroscopic removal of right renal and ureteral calculi. She now presents with a 1 week history of right flank pain associated with nausea. She denies left flank pain. CT scan shows significant right hydronephrosis secondary to 3 right distal ureteral calculi. Urinalysis is suggestive of a UTI. The patient is being treated with IV antibiotics, and she now comes for stent placement. Operative Findings: Cloudy urine drained from right renal pelvis. Description of Procedure: The patient was taken to the operating room and placed in the dorsolithotomy position, with legs supported in Saulo stirrups. The external genitalia was prepped and draped sterilely. The 30 lens was used to introduce the 22-Nigerien Stortz cystoscopic sheath through the urethra and into the bladder under direct vision. The bladder was examined in its entirety. Both ureteral orifices were of normal anatomic location and configuration. No tumors or foreign bodies were seen. A 0.035 inch Glidewire was passed through the cystoscope. The right ureteral orifice was cannulated, and the Glidewire was slowly advanced up to the renal pelvis. Some resistance was met within the right distal ureter. Once the wire was in place, cloudy urine drained alongside the wire. A 24 cm, 6-Nigerien double-J ureteral stent was placed over the wire. Proper stent positioning was verified fluoroscopically and endoscopically. The bladder was emptied and the cystoscope removed. The patient tolerated the procedure well was taken to the recovery room in stable condition.
[2023-12-30 17:31] VITALS: TEMP 97
[2023-12-30] MEDS: ENALAPRILAT 1.25 MG/ML 1 ML VIAL IVP ONE (17:59)
[2023-12-30] MEDS: hydrALAZINE HCL 20 MG/ML 1 ML VIAL IVP ONE (18:37)
[2023-12-30 19:30] VITALS: BP 152/82; PULSE 70; RESP 20
--- NOTE | 2023-12-30 20:40 | P.DS ---
Providers Date of admission: 12/29/23 12:24 Expected date of discharge: 12/30/23 Attending physician: Drew Renteria Consults: 12/29/23 11:34 Consult Physician Urgent Consulting Provider: Clem Florez Consult Reason/Comments: Right hydronephrosis, right ureteral calculus Do you want consulting provider notified?: Yes Primary care physician: Marco Antonio Wolf [facility] Course: Chief Complaint: Right flank pain This is a pleasant 53-year-old patient, follows with Dr. Brain Wolf. Patient has a long history of kidney stones. Used to previously follow-up with Dr. Bradshaw more than with dr. grubbs. Patient had previous stones removed. Has bilateral nephrolithiasis. Currently is also following with jewel hole driller Dr. Monge. Has elevated calcium levels and elevated parathyroid hormone. Workup is in place for possible hyper parathyroidism. For 2 weeks patient felt some discomfort coming on. And right-sided flank pain increased. No fever no chills been having nausea. Symptoms became much worse and decided to come in. Currently no urinary symptoms. December 29: Saw the patient this morning. This afternoon went down for procedure. Right ureteral stent was placed by Dr. Florez. Cloudy urine was obtained. I discussed with Dr. Florez. Will discharge the patient home Ceftin. Patient is feeling well. This evening. No pain. Keen to go home. Discussed with her. Dr. Florez will contact her regarding removal of the stent. Patient to follow-up with endocrinology as planned. Discussion and discharge planning more than 35 minutes Social history: Lives alone. Her mother lives with her. Works at [employer] and down. No smoking no alcohol. Physical examination: VITAL SIGNS: 70, 20, 146% 5, 100% room air GENERAL: Comfortable EYES: Pupils equal. Conjunctiva luis l. HEENT: External appearance of nose and ears normal, oral cavity grossly normal. NECK: JVD not raised; masses not palpable. HEART: First and second heart sounds are normal; no edema. LUNGS: Respiratory rate normal; clear to auscultation. ABDOMEN: Soft, no tenderness r, liver spleen not palpable, no masses palpable. PSYCH: Alert and oriented x3; mood and affect luis l. MUSCULOSKELETAL:No Clubbing/cyanosis;muscles-grossly intact INVESTIGATIONS, reviewed in the clinical context: March 11: White count 4.6 hemoglobin 15.3 platelets 168 potassium 4.6 BUN 15 creatinine 1.12 calcium 11 UA: Blood small. Nitrate negative. Leukoesterase large. WBC 61. CT abdomen pelvis without contrast: Severe right-sided hydronephrosis severe right-sided hydroureter. Up to 1.8 cm. Numerous nonobstructing right renal stones are present. 2 stones in the distal right third ureter 5 mm and 4 mm. Numerous nonobstructive left renal calculi present. Assessment and plan: -Acute severe right-sided hydronephrosis severe right-sided hydroureter. Up to 1.8 cm. Numerous nonobstructing right renal stones are present. 2 stones in the distal right third ureter 5 mm and 4 mm. Patient's had at least 2 more prior episodes with intervention. Dr. Florez: Right stent placement. -Right pyelonephritis, secondary to ureteral stone obstruction. Patient had cloudy urine on cystoscopy at the orifice Ceftin 500 twice daily for 7 days -Bilateral renal calculi of varying sizes -Hypercalcemia. Outpatient workup is being done by Dr. Monge from endocrin ology. Patient has elevated PTH. Concern is for primary hyper parathyroidism -Morbid obesity BMI 47.9 Weight loss measures Disposition: Home Past Medical History Additional Past Medical History / Comment(s): KIDNEY STONES History of Any Multi-Drug Resistant Organisms: None Reported Past Surgical History: Section Additional Past Surgical History / Comment(s): multiple lithotripsies and stents for kidney stones Past Anesthesia/Blood Transfusion Reactions: No Reported Reaction Smoking Status: Never smoker Plan - Discharge Summary Discharge Rx Participant: Yes New Discharge Prescriptions: New cefUROXime axetiL [Ceftin] 500 mg PO BID #14 tab Acetaminophen Tab [Tylenol] 650 mg PO Q6HR PRN tab PRN Reason: Mild Pain Or Fever > 100.5 Continue Ergocalciferol (Vitamin D2) [Drisdol (50,000 Iu)] 1,250 mcg PO MO Discharge Medication List Ergocalciferol (Vitamin D2) [Drisdol (50,000 Iu)] 1,250 mcg PO MO 12/29/23 [History] Acetaminophen Tab [Tylenol] 650 mg PO Q6HR PRN tab 12/30/23 [Rx] cefUROXime axetiL [Ceftin] 500 mg PO BID #14 tab 12/30/23 [Rx] Follow up Appointment(s)/Referral(s): Marco Antonio Wolf MD [Primary Care Provider] - 1-2 days Activity/Diet/Wound Care/Special Instructions: Dr. Florez's office will contact the patient at home for follow-up.
--- NOTE | 2023-12-31 17:30 | FL ---
EXAMINATION TYPE: FL guidance operating room DATE OF EXAM: 12/30/2023 Comparison: None Clinical History: 53-year-old female CYSTO Findings: Stent placement, 20 sec fluoro, dap .60080 mGym2. 3 images submitted. Impression: Fluoroscopy for urology procedure as above.
== END 2023-12-30 21:06 | disposition home or self-care (01) ==
LOC: EC 08:16 → 5NMEDONC 12:24 → INTOOBSV 12:24 → 5NMEDONC 14:15 → UNDODISIN 12-30 21:06
PROVIDERS: ADMIT Hospitalist; ATTEND Hospitalist
DX: N13.2 Hydronephrosis with renal and ureteral calculous obstruction (principal); E83.52 Hypercalcemia; E66.01 Morbid (severe) obesity due to excess calories; Z68.42 Body mass index [BMI] 45.0-49.9, adult; Z87.442 Personal history of urinary calculi; Z88.2 Allergy status to sulfonamides; Z84.2 Family history of other diseases of the genitourinary system
CPT/HCPCS: 52332; 96361 ×2; 96365; 96376; 96375; 99285; 36415; 80053; 82150; 83690; 85025; 81001; 87040; 87086; 74176; G0378 ×2; C2625; C1769; J2270; J0360; J2405; J0696 ×2; J3010; J1885 ×2; J2704; 96374

== ENCOUNTER 2024-01-21 08:21 | Day surgery (SDC) | payer OTHER ==
--- NOTE | 2024-01-20 18:09 | P.GSHP ---
History of Present Illness H&P Date: 01/20/24 53 yo female with a history of active urolithiasis, [facility] recently was in the hospital with right flank pain due to distal ureteral stone. Dr Florez placed a right double j catheter. SHe now somes for formal stone removal with right ureteroscopy and laser lithotripsy. The patient has chronic right hydronephrosis. - Constitutional Constitutional: Denies chills, Denies fever - EENT Eyes: denies blurred vision, denies pain Ears, nose, mouth and throat: Denies headache, Denies sore throat - Cardiovascular Cardiovascular: Denies chest pain, Denies shortness of breath - Respiratory Respiratory: Denies cough, Denies 7 - Gastrointestinal Gastrointestinal: Denies abdominal pain, Denies diarrhea, Denies nausea, Denies vomiting - Genitourinary (Female) Genitourinary: Denies dysuria, Denies hematuria - Genitourinary (Male) Genitourinary: Denies dysuria, Denies hematuria - Musculoskeletal Musculoskeletal: Denies myalgias - Integumentary Integumentary: Denies pruritus, Denies rash - Neurological Neurological: Denies numbness, Denies weakness - Psychiatric Psychiatric: Denies anxiety, Denies depression - Endocrine Endocrine: Denies fatigue, Denies weight change Past Medical History Past Medical History: Renal Disease Additional Past Medical History / Comment(s): KIDNEY STONES, elevated calcium and PTH levels/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 History of Any Multi-Drug Resistant Organisms: None Reported Past Surgical History: Section Additional Past Surgical History / Comment(s): Lithotripsies/stents Past Anesthesia/Blood Transfusion Reactions: No Reported Reaction Smoking Status: Never smoker - Past Family History Father Family Medical History: Cancer Mother Additional Family Medical History / Comment(s): joint replacements Brother(s) Family Medical History: Hypertension, Myocardial Infarction ([place]), Renal Disease Additional Family Medical History / Comment(s): kidney stones Medications and Allergies Home Medications Medication Instructions Recorded Confirmed Type Ergocalciferol (Vitamin D2) 1,250 mcg PO MO 12/29/23 01/15/24 History [Drisdol (50,000 Iu)] HYDROcodone/APAP 5-325MG [[place] 1 tab PO Q6HR PRN 01/15/24 01/15/24 History 5-325] Ibuprofen [Advil] 200 mg PO Q4-6H PRN 01/15/24 01/15/24 History Ketorolac [Toradol] 10 mg PO Q6H PRN 01/15/24 01/15/24 History hydroCHLOROthiazide 12.5 mg PO QAM 01/15/24 01/15/24 History Allergies Allergy/AdvReac Type Severity Reaction Status Date / Time nitrofurantoin Allergy nausea, Verified 12/29/23 11:52 [From Macrobid] vomiting, pounding headache, unable to move Sulfa (Sulfonamide Allergy Nausea & Verified 12/29/23 11:53 Antibiotics) Vomiting, RASH/hives Surgical - Exam - General well developed, well nourished, no distress - Eyes normal ocular movement, no icteric - ENT no hearing loss, no congestion - Neck no masses, trachea midline - Respiratory normal respiratory effort, clear to auscultation - Abdomen Abdomen: soft, non tender, no guarding, no rigid, no rebound - Integumentary no rash, no abnormal pigmentation - Neurologic no disoriented, no combative - Psychiatric oriented to time, oriented to person, oriented to place, speech is normal, memory intact Results - Imaging Abdominal x-ray: report reviewed, image reviewed CT scan - abdomen: report reviewed, image reviewed CT scan - pelvis: report reviewed, image reviewed Assessment and Plan Assessment: Impression: Right ureteral stones. Plan: right ureteroscopy with laser lithotrispy
[~2024-01-21 08:21] MED LIST changes: -AMPICILLIN 1,000 MG in SODIUM CHLORIDE 0.9% 50 ML IVPB PRN; -DEXAMETHASONE SOD PHOSPHATE 4 MG/ML 1 ML VIAL IV ONE; -GENTAMICIN 140 MG in SODIUM CHLORIDE 0.9% 100 ML IVPB PRN; -LACTATED RINGERS 1,000 ML IV SCH; -ONDANSETRON 4 MG/2 ML VIAL IVP ONE
[2024-01-21] MEDS: LACTATED RINGERS 1,000 ML IV SCH (08:57)
[2024-01-21] MEDS: DEXAMETHASONE SOD PHOSPHATE 4 MG/ML 1 ML VIAL IV ONE (09:09)
--- NOTE | 2024-01-21 09:09 | XR ---
EXAMINATION TYPE: XR KUB DATE OF EXAM: 01/21/2024 COMPARISON: 09/10/2023 HISTORY: Presurgical evaluation TECHNIQUE: AP abdomen FINDINGS: There are 2 0.8 cm calcification over the inferior pole left kidney. Previous Right renal c alcifications not clearly identified. A right ureteral stent is present. IMPRESSION: 1. 2 left inferior pole renal calcifications. 2. Right ureteral stent
[2024-01-21] MEDS: ONDANSETRON 4 MG/2 ML VIAL IVP ONE (09:10)
[2024-01-21 09:16] VITALS: TEMP 97
[2024-01-21] MEDS ORDERED: PROPOFOL 10 MG/ML 20 ML VIAL IV ONE (10:02)
[2024-01-21] MEDS ORDERED: SUCCINYLCHOLINE CHLORIDE 200 MG/10 ML VIAL IV ONE (10:02)
[2024-01-21] MEDS ORDERED: PHENYLEPHRINE-0.9% NACL SYG 1,000 MCG/10 ML SYRINGE ONE (10:02)
[2024-01-21] MEDS ORDERED: MIDAZOLAM 2 MG/2 ML VIAL ONE (10:02)
[2024-01-21] MEDS ORDERED: fentaNYL (PF) 50 MCG/ML 2 ML AMP ONE (10:02)
[2024-01-21] MEDS ORDERED: LIDOCAINE 1% INJ 10MG/ML (20 ML MDV) ONE (10:02)
[2024-01-21] MEDS: ceFAZolin 3 GM in SODIUM CHLORIDE 0.9% 100 ML IVPB PRN (10:07)
--- NOTE | 2024-01-21 10:56 | P.OP ---
Date of Procedure: 01/21/24 Preoperative Diagnosis: Right ureteral calculi status post stent placement Postoperative Diagnosis: same Procedure(s) Performed: cystoscopy removal double-J catheter right right ureteroscopy with laser lithotripsy and stone basketing Anesthesia: BRANDI Surgeon: Michael Vilchis Estimated Blood Loss (ml): 0 Pathology: other (stone) Condition: stable Indications for Procedure: patient is 53. She is active urolithiasis calcium oxalate. She has hyperparathyroidism being evaluated by endocrinology and surgery for repair of that problem. She recently large 3 stones in the distal ureter with infected looking urine. Dr. taylor placed a double-J catheter. She now comes for formal stent and stone removal Description of Procedure: patient brought to the operating suite. Given a general anesthetic. Placed lithotomy position with a sterile prep and drape. The bladder is intubated with a 21-Dominican sheath cystoscope with Foroblique lens. The bladder is unremarkable. The left ureteral orifice is normal the right has a double-J catheter. It is grabbed and pulled the urethral meatus. An 035 wires passed through the catheter up into the renal pelvis. I then removed the cystoscope. I passed alongside the wire a semirigid 7-Dominican miniscope. Tones are seen in the mid to distal ureter. The first one which was small is basketed. The second tumor larger and are broken into tiny fragments with the 352 laser probe. The larger fragments are basketed. I then inspect the whole ureter with the ureteroscope and there is no remaining stone ureteroscope was removed. The bladder is drained. The patient is awakened and returned recovery room good condition. She'll be discharged home upon recovery and follow-up in the office in one week. She does have left renal stones that we will consider shockwave lithotripsy for
[2024-01-21 11:55] VITALS: BP 128/88
--- NOTE | 2024-01-21 11:57 | FL ---
Fluoroscopy INDICATION: Pain FINDINGS: Fluoroscopy time: 3.9 seconds. Total dose area product (DAP) in uGy*m?, mGy*cm? (or similar): 0.13675 Images obtained: 4. IMPRESSION: 1. Documentation of fluoroscopy.
[2024-01-21 12:35] VITALS: PULSE 80; RESP 16
== END 2024-01-21 12:30 | disposition home or self-care (01) ==
LOC: OR 08:21
PROVIDERS: ATTEND Urology
DX: N20.2 Calculus of kidney with calculus of ureter (principal); Z96.0 Presence of urogenital implants; E21.3 Hyperparathyroidism, unspecified; I10 Essential (primary) hypertension; E66.9 Obesity, unspecified; Z68.42 Body mass index [BMI] 45.0-49.9, adult; Z84.1 Family history of disorders of kidney and ureter; Z79.899 Other long term (current) drug therapy; Z88.2 Allergy status to sulfonamides; Z88.1 Allergy status to other antibiotic agents
CPT/HCPCS: 82365; 74018; 52353; C1769; J2250; J0330; J1100; J0690; J2405; J2001; J3010; J2704; J2371

== ENCOUNTER 2024-04-15 06:02 | Emergency (ER) | payer OTHER ==
--- NOTE | 2024-04-15 06:29 | ED ---
General Adult HPI - General Chief complaint: Urogenital Stated complaint: Kidney Stones, Abd Pain Time Seen by Provider: 04/15/24 06:17 Source: patient, RN notes reviewed Mode of arrival: ambulatory Limitations: no limitations - History of Present Illness Initial comments: 54-year-old female presents emergency department chief complaint of flank pain, hematuria. Patient states she has a long history of kidney stones sees local urology. Patient states that she started having some discomfort last few days in which she has been taking her [place], Toradol but states that is not helping. She states overnight she developed severe discomfort, nausea. Patient denies any fevers or chills she states she does have some dysuria. She primarily has left flank pain - Related Data Home Medications Medication Instructions Recorded Confirmed Ergocalciferol (Vitamin D2) 1,250 mcg PO MO 12/29/23 01/21/24 [Drisdol (50,000 Iu)] HYDROcodone/APAP 5-325MG [[place] 1 tab PO Q6HR PRN 01/15/24 01/21/24 5-325] Ibuprofen [Advil] 200 mg PO Q4-6H PRN 01/15/24 01/21/24 Ketorolac [Toradol] 10 mg PO Q6H PRN 01/15/24 01/21/24 hydroCHLOROthiazide 12.5 mg PO QAM 01/15/24 01/21/24 Previous Rx's Medication Instructions Recorded Cephalexin [Keflex] 500 mg PO Q8HR #21 cap 04/15/24 Ondansetron Odt [Zofran Odt] 4 mg PO Q8HR PRN #10 tab 04/15/24 Allergies Allergy/AdvReac Type Severity Reaction Status Date / Time nitrofurantoin Allergy nausea, Verified 04/15/24 06:17 [From Macrobid] vomiting, pounding headache, unable to move Sulfa (Sulfonamide Allergy Nausea & Verified 04/15/24 06:17 Antibiotics) Vomiting, RASH/hives Review of Systems ROS Statement: Those systems with pertinent positive or pertinent negative responses have been documented in the HPI. ROS Other: All systems not noted in ROS Statement are negative. 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 History of Any Multi-Drug Resistant Organisms: None Reported Past Surgical History: Section Additional Past Surgical History / Comment(s): Lithotripsies/stents Past Anesthesia/Blood Transfusion Reactions: No Reported Reaction Past Psychological History: No Psychological Hx Reported Smoking Status: Never smoker Past Alcohol Use History: None Reported Past Drug Use History: None Reported - Past Family History Father Family Medical History: Cancer Mother Additional Family Medical History / Comment(s): joint replacements Brother(s) Family Medical History: Hypertension, Myocardial Infarction ([place]), Renal Disease Additional Family Medical History / Comment(s): kidney stones General Exam Limitations: no limitations General appearance: alert, in no apparent distress Head exam: Present: atraumatic, normocephalic, normal inspection Eye exam: Present: normal appearance, PERRL, EOMI. Absent: scleral icterus, conjunctival injection, periorbital swelling Respiratory exam: Present: normal lung sounds bilaterally. Absent: respiratory distress, wheezes, rales, rhonchi, stridor Cardiovascular Exam: Present: regular rate, normal rhythm, normal heart sounds. Absent: systolic murmur, diastolic murmur, rubs, gallop, clicks GI/Abdominal exam: Present: soft, tenderness, normal bowel sounds. Absent: distended, guarding, rebound, rigid Back exam: Present: CVA tenderness (L). Absent: CVA tenderness (R) Neurological exam: Present: alert Course Vital Signs 04/15/24 04/15/24 06:15 06:55 Temperature 97.6 F Pulse Rate 68 64 Respiratory 20 20 Rate Blood Pressure 159/113 144/97 O2 Sat by Pulse 96 99 Oximetry Medical Decision Making - Medical Decision Making Was pt. sent in by a medical professional or institution (, PA, HEAT TREATER, urgent care, hospital, or group home...) When possible be specific @ -No Did you speak to anyone other than the patient for history (EMS, parent, family, police, friend...)? What history was obtained from this source @ -No Did you review nursing and triage notes (agree or disagree)? Why? @ -I reviewed and agree with nursing and triage notes Were old charts reviewed (outside hosp., previous admission, EMS record, old EKG, old radiological studies, urgent care reports/EKG's, group home records)? Report findings @ -No old charts were reviewed Differential Diagnosis (chest pain, altered mental status, abdominal pain women, abdominal pain men, vaginal bleeding, weakness, fever, dyspnea, syncope, headache, dizziness, GI bleed, back pain, seizure, CVA, palpatations, mental health, musculoskeletal)? @ -Differential Abdominal Pain Women: Appendicitis, Cholecystitis, diverticulosis, ischemic bowel, pancreatitis, hepatitis, UTI, gastroenteritis, AAA, incarcerated hernia, bowel obstruction, constipation, inflammatory bowel, hepatitis, peptic ulcer disease, splenic infarction, perforated viscus, vulvitis, ovarian torsion, PID, kidney stone, placenta abruption, this is not meant to be an all-inclusive list EKG interpreted by me (3pts min.). @ -None X-rays interpreted by me (1pt min.). @ -X-ray KUB showing bilateral nephrolithiasis CT interpreted by me (1pt min.). @ -None done U/S interpreted by me (1pt. min.). @ -None done What testing was considered but not performed or refused? (CT, X-rays, U/S, labs)? Why? @ -None What meds were considered but not given or refused? Why? @ -None Did you discuss the management of the patient with other professionals (professionals i.e. , PA, HEAT TREATER, lab, RT, psych nurse, social media editor, digging machine operator, teacher, medical corps officer, case management coordinator)? Give summary @ -No Was smoking cessation discussed for >3mins.? @ -No Was critical care preformed (if so, how long)? @ -No Were there social determinants of health that impacted care today? How? (Homelessness, low income, unemployed, alcoholism, drug addiction, transportation, low edu. Level, literacy, decrease access to med. care, longterm, rehab)? @ -No Was there de-escalation of care discussed even if they declined (Discuss DNR or withdrawal of care, Hospice)? DNR status @ -No What co-morbidities impacted this encounter? (DM, HTN, Smoking, COPD, CAD, Cancer, CVA, ARF, Chemo, Hep., AIDS, mental health diagnosis, sleep apnea, morbid obesity)? @ -None Was patient admitted / discharged? Hospital course, mention meds given and route, prescriptions, significant lab abnormalities, going to OR and other pertinent info. @ -Discharge patient pain is improved, patient does have noted hematuria and moderate amount of WBCs in urinalysis patient is afebrile, not hypotensive no significant leukocytosis was given 2 g of Rocephin discharged on oral an tibiotics will follow-up with urology she has a history of kidney stones. Undiagnosed new problem with uncertain prognosis? @ -No Drug Therapy requiring intensive monitoring for toxicity (Heparin, Nitro, Insulin, Cardizem)? @ -No Were any procedures done? @ -No Diagnosis/symptom? @ -UTI, kidney stones Acute, or Chronic, or Acute on Chronic? @ -Acute Uncomplicated (without systemic symptoms) or Complicated (systemic symptoms)? @ -Uncomplicated Side effects of treatment? @ -No Exacerbation, Progression, or Severe Exacerbation? @ -No Poses a threat to life or bodily function? How? (Chest pain, [place], MS, pneumonia, PE, COPD, DKA, ARF, appy, cholecystitis, CVA, Diverticulitis, Homicidal, Suicidal, threat to staff... and all critical care pts) @ -No - Lab Data Result diagrams: 04/15/24 06:35 04/15/24 06:35 Lab Results 04/15/24 04/15/24 04/15/24 Range/Units 06:35 06:35 06:35 WBC 5.7 (3.8-10.6) k/uL RBC 5.86 H (3.80-5.40) m/uL Hgb 16.1 H (11.4-16.0) gm/dL Hct 51.1 H (34.0-46.0) % MCV 87.2 (80.0-100.0) fL MCH 27.5 (25.0-35.0) pg MCHC 31.6 (31.0-37.0) g/dL RDW 15.0 (11.5-15.5) % Plt Count 232 (150-450) k/uL MPV 7.0 Neutrophils % 60 % Lymphocytes % 24 % Monocytes % 6 % Eosinophils % 7 % Basophils % 1 % Neutrophils # 3.4 (1.3-7.7) k/uL Lymphocytes # 1.3 (1.0-4.8) k/uL Monocytes # 0.3 (0-1.0) k/uL Eosinophils # 0.4 (0-0.7) k/uL Basophils # 0.1 (0-0.2) k/uL Sodium 141 (137-145) mmol/L Potassium 3.6 (3.5-5.1) mmol/L Chloride 105 (98-107) mmol/L Carbon Dioxide 30 (22-30) mmol/L Anion Gap 6 mmol/L BUN 22 H (7-17) mg/dL Creatinine 0.98 (0.52-1.04) mg/dL Est GFR (CKD-EPI)AfAm 75 (>60 ml/min/1.73 sqM) Est GFR (CKD-EPI)NonAf 65 (>60 ml/min/1.73 sqM) Glucose 98 (74-99) mg/dL Plasma Lactic Acid Artie (0.7-2.0) mmol/L Calcium 11.2 H (8.4-10.2) mg/dL Total Bilirubin 0.6 (0.2-1.3) mg/dL AST 22 (14-36) U/L ALT 17 (4-34) U/L Alkaline Phosphatase 95 (38-126) U/L Total Protein 7.7 (6.3-8.2) g/dL Albumin 4.4 (3.5-5.0) g/dL Lipase 167 (23-300) U/L Urine Color Red Urine Appearance Turbid H (Clear) Urine RBC >182 H (0-5) /hpf Urine WBC 164 H (0-5) /hpf Ur Squamous Epith Cells 5 H (0-4) /hpf Urine Mucus Occasional H (None) /hpf // Range/Units 06:35 WBC (3.8-10.6) k/uL RBC (3.80-5.40) m/uL Hgb (11.4-16.0) gm/dL Hct (34.0-46.0) % MCV (80.0-100.0) fL MCH (25.0-35.0) pg MCHC (31.0-37.0) g/dL RDW (11.5-15.5) % Plt Count (150-450) k/uL MPV Neutrophils % % Lymphocytes % % Monocytes % % Eosinophils % % Basophils % % Neutrophils # (1.3-7.7) k/uL Lymphocytes # (1.0-4.8) k/uL Monocytes # (0-1.0) k/uL Eosinophils # (0-0.7) k/uL Basophils # (0-0.2) k/uL Sodium (137-145) mmol/L Potassium (3.5-5.1) mmol/L Chloride (98-107) mmol/L Carbon Dioxide (22-30) mmol/L Anion Gap mmol/L BUN (7-17) mg/dL Creatinine (0.52-1.04) mg/dL Est GFR (CKD-EPI)AfAm (>60 ml/min/1.73 sqM) Est GFR (CKD-EPI)NonAf (>60 ml/min/1.73 sqM) Glucose (74-99) mg/dL Plasma Lactic Acid Artie 1.0 (0.7-2.0) mmol/L Calcium (8.4-10.2) mg/dL Total Bilirubin (0.2-1.3) mg/dL AST (14-36) U/L ALT (4-34) U/L Alkaline Phosphatase (38-126) U/L Total Protein (6.3-8.2) g/dL Albumin (3.5-5.0) g/dL Lipase (23-300) U/L Urine Color Urine Appearance (Clear) Urine RBC (0-5) /hpf Urine WBC (0-5) /hpf Ur Squamous Epith Cells (0-4) /hpf Urine Mucus (None) /hpf Disposition Clinical Impression: UTI (urinary tract infection), Kidney stone Disposition: HOME SELF-CARE Condition: Stable Instructions (If sedation given, give patient instructions): Urinary Tract Infection in Women (ED) Additional Instructions: Please return to the Emergency Department if symptoms worsen or any other concerns. Prescriptions: Cephalexin [Keflex] 500 mg PO Q8HR #21 cap Ondansetron Odt [Zofran Odt] 4 mg PO Q8HR PRN #10 tab PRN Reason: Nausea Is patient prescribed a controlled substance at d/c from ED?: No Referrals: Marco Antonio Wolf MD [Primary Care Provider] - 1-2 days Clem Florez MD [STAFF PHYSICIAN] - 1-2 days Time of Disposition: 07:54
[2024-04-15] MEDS: SODIUM CHLORIDE 0.9% 2,000 ML IV STA (06:43)
[2024-04-15] MEDS: KETOROLAC 15 MG/ML 1 ML VIAL IVP STA (06:50)
[2024-04-15] MEDS: HYDROmorphone 0.5 MG/0.5 ML SYRINGE IVP STA ×2 (06:51→08:39)
[2024-04-15] MEDS: ONDANSETRON 4 MG/2 ML VIAL IVP STA (06:52)
[2024-04-15 07:07] LABS: Basophils # (A) 0.1 k/uL (0-0.2); Basophils % (A) 1 %; Eosinophils # (A) 0.4 k/uL (0-0.7); Eosinophils % (A) 7 %; HCT 51.1 % (34.0-46.0); HGB 16.1 gm/dL (11.4-16.0); Lymphocytes # (A) 1.3 k/uL (1.0-4.8); Lymphocytes % (A) 24 %; MCH 27.5 pg (25.0-35.0); MCHC 31.6 g/dL (31.0-37.0); MCV 87.2 fL (80.0-100.0); Monocytes # (A) 0.3 k/uL (0-1.0); Monocytes % (A) 6 %; Neutrophils # (A) 3.4 k/uL (1.3-7.7); Neutrophils % (A) 60 %; Platelet Count 232 k/uL (150-450); RBC 5.86 m/uL (3.80-5.40); WBC 5.7 k/uL (3.8-10.6)
[2024-04-15 07:22] LABS: ALT 17 U/L (4-34); AST 22 U/L (14-36); African American GFR (CKD) 75 (>60 ml/min/1.73 sqM); Albumin 4.4 g/dL (3.5-5.0); Alkaline Phosphatase 95 U/L (38-126); Anion Gap 6 mmol/L; Blood Urea Nitrogen 22 mg/dL (7-17); Calcium 11.2 mg/dL (8.4-10.2); Carbon Dioxide 30 mmol/L (22-30); Chloride 105 mmol/L (98-107); Glucose 98 mg/dL (74-99); Lipase 167 U/L (23-300); Non-African American GFR(CKD) 65 (>60 ml/min/1.73 sqM); Potassium 3.6 mmol/L (3.5-5.1); Sodium 141 mmol/L (137-145); Total Bilirubin 0.6 mg/dL (0.2-1.3); Total Protein 7.7 g/dL (6.3-8.2)
[2024-04-15 07:33] LABS: Mucus,Urine Occasional /hpf; RBC,Urine >182 /hpf (0-5); Squamous Epithelial Cell,Urine 5 /hpf (0-4); WBC,Urine 164 /hpf (0-5)
--- NOTE | 2024-04-15 07:33 | XR ---
EXAMINATION TYPE: XR KUB DATE OF EXAM: 04/15/2024 COMPARISON: NONE HISTORY: Pain TECHNIQUE: Single supine KUB image of the abdomen is obtained FINDINGS: Small bowel demonstrates no evidence for dilatation or air fluid levels. Gas and fecal material is seen in non-distended colon. No convincing evidence for pneumoperitoneum. 6.7 mm calculus overlies the lower pole. Possible calculus overlies the right kidney measuring 4 mm. The lung bases are clear. The osseous structures are intact. IMPRESSION: 1. Overall nonobstructive bowel gas pattern. Bilateral nephrolithiasis suggested.
[2024-04-15 07:34] LABS: Appearance,Urine Turbid (Clear)
[2024-04-15 07:35] LABS: Color,Urine Red
[2024-04-15 08:01] VITALS: RESP 18
[2024-04-15 08:39] VITALS: BP 142/91; PULSE 61; TEMP 97.7
== END 2024-04-15 08:41 | disposition home or self-care (01) ==
LOC: EC 06:02
DX: N39.0 Urinary tract infection, site not specified (principal); N20.0 Calculus of kidney; Z88.1 Allergy status to other antibiotic agents; Z88.2 Allergy status to sulfonamides
CPT/HCPCS: 99284 ×2; 96365 ×2; 96375 ×4; 96361 ×2; 36415; 80053; 83605; 83690; 85025; 81001; 87086; 74018; J2405; J0696; J1885; J1170

== ENCOUNTER → 2024-06-11 | Outpatient (CLI) | payer OTHER ==
--- NOTE | 2024-07-05 12:59 | XR ---
Patient: Corin Sher M Ordering Physician: Unknown, Unknown ID: [id number] Phone, Pager: Phone: N/A Pager: N/A : [phone] Age/Gender: 54Y, F Primary Location: N/A Procedure: XR KUB Study Date: 05/21 8:09:00 AM EXAMINATION TYPE: XR KUB DATE OF EXAM: 06/11/2024 HISTORY: Pain Comparison: 04/15/2024 Single KUB is submitted for interpretation. Findings: Right renal calculi: Right renal calculus measures 5 mm Right ureteral calculi: None Visualized. Left renal calculi: Lower pole left renal calculus measures 10.6 mm. 2 mm calculus seen more caudall y. Left ureteral calculi: None Visualized. Pelvic calcifications: None Visualized. Bowel gas pattern is unremarkable. No free air. No mass effects. IMPRESSION: 1. As above
== END | disposition home or self-care (01) ==
LOC: RADXRMAIN 07:54
PROVIDERS: ATTEND Urology
DX: R10.9 Unspecified abdominal pain (principal)
CPT/HCPCS: 74018

== ENCOUNTER → 2024-11-08 | Outpatient (CLI) | payer OTHER ==
--- NOTE | 2024-11-08 08:57 | XR ---
EXAMINATION TYPE: XR KUB DATE OF EXAM: 11/08/2024 8:49 AM CLINICAL HISTORY: Calculus of kidney. TECHNIQUE: Two supine KUB images of the abdomen are obtained. COMPARISON: Most recent abdominal x-ray June 11, 2024. FINDINGS: Bilateral nephrolithiasis redemonstrated including a larger 9 mm calculus near left of the lateral left 12th rib. There are 2 right renal calculi measuring up to 5 mm in size. No bladder calcu li. Overall nonobstructive bowel gas pattern. Osseous structures are intact. IMPRESSION: As above. [facility], , 11/08/2024 8:54 AM
== END | disposition home or self-care (01) ==
LOC: RADXRMAIN 08:30
PROVIDERS: ATTEND Urology
DX: N20.0 Calculus of kidney (principal)
CPT/HCPCS: 74018

== ENCOUNTER → 2024-12-16 | Outpatient (CLI) | payer OTHER ==
--- NOTE | 2024-12-16 13:24 | XR ---
EXAMINATION TYPE: XR KUB DATE OF EXAM: 12/16/2024 10:53 AM COMPARISON: None. CLINICAL INDICATION: Female, 54 years old with history of N20.0 calculus, TECHNIQUE: XR KUB view(s) obtained. FINDINGS: There is a normal bowel gas pattern. Psoas margins are normal. No organomegaly is present. There is a 0.9 cm calcification at the inferior pole left kidney. A 0.6 cm calcification inferior camila e right kidney. IMPRESSION: 1. Bilateral lower pole renal stones. [facility], , 12/16/2024 1:21 PM
== END | disposition home or self-care (01) ==
LOC: RADXRMAIN 10:20
PROVIDERS: ATTEND Urology
DX: N20.0 Calculus of kidney (principal)
CPT/HCPCS: 74018

== ENCOUNTER → 2025-02-01 | Outpatient (CLI) | payer OTHER ==
[2025-02-01 09:52] LABS: Appearance,Urine Cloudy (Clear); Bilirubin,Urine Negative (Negative); Blood,Urine Moderate (Negative); Color,Urine Light Yellow; Glucose,Urine (UA) Negative (Negative); Ketones,Urine Negative (Negative); Leukocyte Esterase,Urine Moderate (Negative); Mucus,Urine Rare /hpf; Nitrite,Urine Negative (Negative); PH, Urine 6.5 (5.0-8.0); Protein,Urine Trace (Negative); RBC,Urine 103 /hpf (0-5); Specific Gravity,Urine 1.019 (1.001-1.035); Squamous Epithelial Cell,Urine 4 /hpf (0-4); Urobilinogen,Urine <2.0 mg/dL (<2.0); WBC,Urine 22 /hpf (0-5)
[2025-02-01 15:01] LABS: HCT 49.9 % (37.2-46.3); HGB 15.6 g/dL (12.0-15.0); MCH 27.2 pg (27.0-32.0); MCHC 31.3 g/dL (32.0-37.0); MCV 87.1 FL (80.0-97.0); Mean Platelet Volume 9.2 FL (9.5-12.2); NRBC Per 100 WBC 0 X 10*3/uL (0.00-0.01); Platelet Count 210 X 10*3/uL (140-440); RBC 5.73 X 10*6/uL (4.10-5.20); RDW 15.1 % (11.5-14.5); WBC 4.81 X 10*3/uL (4.50-10.00)
[2025-02-01 15:02] LABS: Basophils # (A) 0.05 X 10*3/uL (0.00-0.10); Eosinophils # (A) 0.44 X 10*3/uL (0.04-0.35); Eosinophils % (A) 9.1 %; Lymphocytes # (A) 1.52 X 10*3/uL (0.90-5.00); Lymphocytes % (A) 31.6 %; Monocytes # (A) 0.33 X 10*3/uL (0.20-1.00); Monocytes % (A) 6.9 %; Neutrophils # (A) 2.46 X 10*3/uL (1.80-7.70); Neutrophils % (A) 51.2 %
[2025-02-01 15:21] LABS: Blood Urea Nitrogen 14.2 mg/dL (9.0-27.0); Carbon Dioxide 28.4 mmol/L (21.6-31.8); Chloride 104 mmol/L (96-109); Potassium 3.7 mmol/L (3.5-5.5); Sodium 141 mmol/L (135-145)
== END | disposition home or self-care (01) ==
LOC: LABPAT 07:23
PROVIDERS: ATTEND Urology
DX: Z01.812 Encounter for preprocedural laboratory examination (principal); N20.0 Calculus of kidney
CPT/HCPCS: 80051; 81001; 82565; 84520; 85025

== ENCOUNTER 2025-02-07 05:50 | Day surgery (SDC) | payer OTHER ==
--- NOTE | 2025-02-02 13:00 | P.GSHP ---
History of Present Illness H&P Date: 02/02/25 54-year-old female with a history of kidney stones. She has bilateral renal stones which she wishes to have removed. We have ahmet treatment options. She comes for a left extracorporal shockwave lithotripsy to her 8 mm lower pole stone on the left side. - Constitutional Constitutional: Denies chills, Denies fever - EENT Eyes: denies blurred vision, denies pain Ears, nose, mouth and throat: Denies headache, Denies sore throat - Cardiovascular Cardiovascular: Denies chest pain, Denies shortness of breath - Respiratory Respiratory: Denies cough, Denies 7 - Gastrointestinal Gastrointestinal: Denies abdominal pain, Denies diarrhea, Denies nausea, Denies vomiting - Genitourinary (Female) Genitourinary: Denies dysuria, Denies hematuria - Genitourinary (Male) Genitourinary: Denies dysuria, Denies hematuria - Musculoskeletal Musculoskeletal: Denies myalgias - Integumentary Integumentary: Denies pruritus, Denies rash - Neurological Neurological: Denies numbness, Denies weakness - Psychiatric Psychiatric: Denies anxiety, Denies depression - Endocrine Endocrine: Denies fatigue, Denies weight change Past Medical History Past Medical History: Renal Disease Additional Past Medical History / Comment(s): KIDNEY STONES, elevated calcium and PTH levels/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 History of Any Multi-Drug Resistant Organisms: None Reported Past Surgical History: Section Additional Past Surgical History / Comment(s): Lithotripsies/stents Past Anesthesia/Blood Transfusion Reactions: No Reported Reaction Smoking Status: Never smoker - Past Family History Father Family Medical History: Cancer Mother Additional Family Medical History / Comment(s): joint replacements Brother(s) Family Medical History: Hypertension, Myocardial Infarction ([place]), Renal Disease Additional Family Medical History / Comment(s): kidney stones Medications and Allergies Home Medications Medication Instructions Recorded Confirmed Type Ergocalciferol (Vitamin D2) 1,250 mcg PO MO 12/29/23 02/01/25 History [Drisdol (50,000 Iu)] HYDROcodone/APAP 5-325MG [[place] 1 tab PO Q6HR PRN 01/15/24 02/01/25 History 5-325] Ibuprofen [Advil] 200 mg PO Q4-6H PRN 01/15/24 02/01/25 History Ketorolac [Toradol] 10 mg PO Q6H PRN 01/15/24 02/01/25 History hydroCHLOROthiazide 25 mg PO QAM 01/15/24 02/01/25 History Ondansetron Odt [Zofran Odt] 4 mg PO Q8HR PRN #10 tab 04/15/24 02/01/25 Rx Allergies Allergy/AdvReac Type Severity Reaction Status Date / Time nitrofurantoin Allergy nausea, Verified 02/01/25 08:54 [From Macrobid] vomiting, pounding headache, unable to move Sulfa (Sulfonamide Allergy Nausea & Verified 02/01/25 08:54 Antibiotics) Vomiting, RASH/hives Surgical - Exam - General well developed, well nourished, no distress - Eyes normal ocular movement, no icteric - ENT no hearing loss, no congestion - Neck no masses, trachea midline - Respiratory normal respiratory effort, clear to auscultation - Abdomen Abdomen: soft, non tender, no guarding, no rigid, no rebound - Integumentary no rash, no abnormal pigmentation - Neurologic no disoriented, no combative - Psychiatric oriented to time, oriented to person, oriented to place, speech is normal, memory intact Results - Imaging Abdominal x-ray: report reviewed, image reviewed Assessment and Plan Assessment: Impression: Left renal stone, 8 mm mid to lower pole left Recommendations: Extracorporeal shockwave lithotripsy left
[2025-02-07] MEDS ORDERED: LIDOCAINE 1% (10MG/ML) FOR IV START INTRADERMA PRN (06:48)
[2025-02-07 06:54] VITALS: TEMP 98
[2025-02-07] MEDS: IV FLUID CONTINUATION 1,000 ML IV ONE ×2 (07:04→07:35)
[2025-02-07] MEDS: LACTATED RINGERS 1,000 ML IV SCH (07:04)
--- NOTE | 2025-02-07 07:19 | XR ---
EXAMINATION TYPE: XR KUB DATE OF EXAM: 02/07/2025 COMPARISON: Multiple KUB radiographs the most recent 12/16/2024 HISTORY: Pain TECHNIQUE: Single supine KUB image of the abdomen is obtained FINDINGS: Small bowel demonstrates no evidence for dilatation or air fluid levels. Gas and fecal material is seen in non-distended colon. No convincing evidence for pneumoperitoneum. Redemonstration of at least 3 right renal calculi with largest measuring up to 7 mm. Redemonstration of at least 2 left renal calculi with largest measuring up to 11 mm. Left pelvis 1.2 cm calculus concerning for distal ureteral calculus. The osseous structures are intact. IMPRESSION: 1. Bilateral renal calculi with a left pelvis calculus measuring up to 1.2 cm concerning for distal ureteral calculus. 2. Overall nonobstructive bowel gas pattern. [facility], , 02/07/2025 7:16 AM
[2025-02-07] MEDS ORDERED: fentaNYL (PF) 50 MCG/ML 2 ML AMP ONE (07:42)
[2025-02-07] MEDS ORDERED: PROPOFOL 10 MG/ML 20 ML VIAL IV ONE (07:42)
[2025-02-07] MEDS ORDERED: MIDAZOLAM 2 MG/2 ML VIAL ONE (07:42)
[2025-02-07] MEDS ORDERED: KETAMINE HCL IN 0.9 % NACL 50 MG/5 ML SYRINGE ONE (07:42)
--- NOTE | 2025-02-07 08:36 | P.OP ---
Date of Procedure: 02/07/25 Preoperative Diagnosis: Left renal calculus Postoperative Diagnosis: Same Procedure(s) Performed: Left extracorporal shockwave lithotripsy (ESWL) Anesthesia: MAC Surgeon: Clem Florez Estimated Blood Loss (ml): 0 IV fluids (ml): 1,000 Pathology: none sent Condition: stable Disposition: PACU Indications for Procedure: The patient is a 54-year-old female with a history of kidney stones. She has bilateral renal stones which she wishes to have removed. Alternative treatment options were reviewed, and she has elected to undergo left extracorporal shockwave lithotripsy to treat an 8 mm left lower pole stone. Operative Findings: The calculus changed in appearance, suggestive of fragmentation. Description of Procedure: The patient was taken to the operating room and placed on the [employer] 3000 lithotripter in the supine position. The calculus was seen on biplanar fluoroscopy. Once the patient was properly positioned and sedated, lithotripsy was performed. The energy level was gradually increased per protocol, to an energy level of 20. After 200 shocks were administered, a 2 minute pause was instituted per protocol. A total of 2500 shocks were given at a rate of 60 shocks per minute. Fluoroscopy was utilized at a minimum to ensure proper positioning and determine the treatment status. The appearance of the calculus appeared to change, suggesting fragmentation had occurred. The patient tolerated the procedure well was taken to the recovery room in stable condition. Instructions were given to strain the urine, and the patient will follow-up within one week.
[2025-02-07 09:01] VITALS: BP 140/87; PULSE 57; RESP 16
== END 2025-02-07 09:09 | disposition home or self-care (01) ==
LOC: ORWHC2ENDO 05:50
PROVIDERS: ATTEND Urology
DX: N20.0 Calculus of kidney (principal); Z87.442 Personal history of urinary calculi; Z88.1 Allergy status to other antibiotic agents; Z88.2 Allergy status to sulfonamides
CPT/HCPCS: 74018; 50590; J2250; J3010; J2704

== ENCOUNTER → 2025-02-14 | Outpatient (CLI) | payer OTHER ==
--- NOTE | 2025-02-14 09:21 | XR ---
EXAMINATION TYPE: XR KUB DATE OF EXAM: 02/14/2025 8:14 AM COMPARISON: 02/07/2025, 11/08/2024 CLINICAL INDICATION: Female, 54 years old with history of N20.0 CALCULUS OF KIDNEY; PHH, pain, left r enal stone TECHNIQUE: One radiographic view of the abdomen was obtained. FINDINGS: Proximally 3 mid right abdominal calcifications measuring up to 7 mm. Approximately 3 on th e left as well measuring up to 8 mm. A previously elongated 1.1 cm calcification projecting over the lower left sacrum appears have been present back to at least 11/08/2024 and may represent a bone islan d. IMPRESSION: Bilateral nephrolithiasis measuring up to 8 mm. [facility], Workstation: [id number], 02/14/2025 9:18 AM
== END | disposition home or self-care (01) ==
LOC: RADXRMAIN 08:01
PROVIDERS: ATTEND Urology
DX: N20.0 Calculus of kidney (principal)
CPT/HCPCS: 74018

== ENCOUNTER → 2025-03-28 | Outpatient (CLI) | payer OTHER ==
--- NOTE | 2025-03-28 09:08 | XR ---
EXAMINATION TYPE: XR KUB DATE OF EXAM: 03/28/2025 COMPARISON: Multiple KUB radiographs with most recent 02/14/2025 HISTORY: N20.0 CALCULUS OF KIDNEY TECHNIQUE: Single supine KUB image of the abdomen is obtained FINDINGS: Small bowel demonstrates no evidence for dilatation or air fluid levels. Gas and fecal material is seen in non-distended colon. No convincing evidence for pneumoperitoneum. There are 3 stable right renal calculi the largest measuring up to 8 mm. Approximately 3 stable left renal calculi with largest measured 8 mm. Stable elongated 1.1 cm calcification projecting over the l ower left sacrum and may represent a bone island. The osseous structures are intact. IMPRESSION: Bilateral nephrolithiasis measuring up to 8 mm. [facility], , 03/28/2025 9:06 AM
== END | disposition home or self-care (01) ==
LOC: RADXRMAIN 08:42
PROVIDERS: ATTEND Urology
DX: N20.0 Calculus of kidney (principal)
CPT/HCPCS: 74018